=== PATIENT | male | born 1935 | race Caucasian/White ===

== ENCOUNTER 2019-02-01 13:36 | Inpatient (IN) | payer MEDICARE, MEDICAID ==
[~2019-02-01] VITALS: Ht 172.7 cm; Wt 63.5 kg
[~2019-02-01 13:36] MED LIST: ACET325T55 PO; ASCO-105 PO; CALC-1051 PO; DIGO125T97 PO; DOCU100C40 PO; LORA10TA7 PO; METO25TA6 PO; MULT1TAB74 PO; OMEG-166 PO; ONDA4TAB6 PO; OXYB5TAB29 PO; PANT-47 PO; PHEN100C12 PO; ROSU40TA PO; WARF3TAB56 PO
[2019-02-01 14:39] LABS: CLARITY,URINE CLOUDY (Clear); COLOR,URINE AMBER (Yellow); GLUCOSE, URINE NEGATIVE (Neg); KETONES,URINE 40 mg/dl (Neg); LEUKOCYTE ESTERASE ,URINE NEGATIVE (Neg); NITRITES, URINE NEGATIVE (Neg); OCCULT BLOOD,URINE TRACE-INTACT (Neg); PH,URINE 5.5 (4.8-8.0); PROTEIN,URINE 30 mg/dl (Neg)
[2019-02-01 14:40] LABS: UA COLLECTION TYPE CLN CATCH MIDSTREAM
[2019-02-01 14:46] LABS: MUCUS STRANDS FEW /LPF (Neg); SQUAMOUS EPITHELIAL CELL,UR NONE SEEN /LPF (FEW)
[2019-02-01 14:47] LABS: RBC,URINE 0-2 /HPF (0-2); WBC,URINE 0-4 /HPF (0-4)
[2019-02-01 14:48] LABS: AMORPHOUS URATES 3+
[2019-02-01 14:49] LABS: BACTERIA,URINE FEW /HPF (Neg)
[2019-02-01 15:08] LABS: URINE AMPHETAMINE SCREEN NEGATIVE (Neg); URINE BARBITUATE SCREEN NEGATIVE (Neg); URINE BENZODIAZEPINES SCREEN NEGATIVE (Neg); URINE CANNABINOID SCREEN NEGATIVE (Neg); URINE COCAINE SCREEN NEGATIVE (Neg); URINE METHADONE SCREEN NEGATIVE (Neg); URINE OPIATE SCREEN NEGATIVE (Neg); URINE PHENCYCLIDINE SCREEN NEGATIVE (Neg)
[2019-02-01 15:23] LABS: HEMATOCRIT 46.4 % (42.0-52.0); LYMPHOCYTES # (AUTO) 0.7 X10'3 (1.1-4.8); MONOCYTES # (AUTO) 1.2 X10'3 (0-0.9); NEUTROPHILS # (AUTO) 8.5 X10'3 (1.8-7.7); WHITE BLOOD COUNT 10.4 X10'3 (4.5-11.0)
[2019-02-01 15:24] LABS: BASOPHILS % (AUTO) 0.3 % (0-1); EOSINOPHILS % (AUTO) 0.2 % (0-6); HEMOGLOBIN 15.8 g/dl (14.0-17.9); LYMPHOCYTES % (AUTO) 6.3 % (21-51); MEAN CORPUSCULAR HEMOGLOBIN 33.8 PG (27.0-31.0); MEAN CORPUSCULAR HGB CONC 33.9 g/dL (33.0-36.5); MEAN CORPUSCULAR VOLUME 99.4 FL (78-98); MEAN PLATELET VOLUME 8.9 FL (7.4-10.4); MONOCYTES % (AUTO) 11.6 % (2-12); NEUTROPHILS % (AUTO) 81.6 % (42-75); PLATELET COUNT 179 X10'3 (140-440); RED BLOOD COUNT 4.67 X10'6 (4.70-6.10); RED CELL DISTRIBUTION WIDTH 13.4 % (11.5-14.5)
[2019-02-01 15:39] LABS: ALANINE AMINOTRANSFERASE 17 U/L (12-78); ALBUMIN 2.8 G/DL (3.4-5.0); ALBUMIN/GLOBULIN RATIO 0.6 (1.1-1.5); ALKALINE PHOSPHATASE 83 IU/L (46-116); ANION GAP 10 (8-16); ASPARTATE AMINO TRANSFERASE 22 U/L (10-37); BILIRUBIN,TOTAL 0.6 MG/DL (0.1-1.0); BLOOD UREA NITROGEN 29 MG/DL (7-18); BUN/CREATININE RATIO 26.4 (5.4-32.0); CALCIUM 8.7 MG/DL (8.5-10.1); CHLORIDE 107 MMOL/L (99-107); GLUCOSE 143 MG/DL (70-104); POTASSIUM 4.4 MMOL/L (3.5-5.1); SODIUM 144 MMOL/L (135-145); TOTAL CARBON DIOXIDE 27.1 MMOL/L (24-32); TOTAL PROTEIN 7.6 G/DL (6.4-8.2); eGFR 63 ML/MIN
[2019-02-01 15:44] LABS: PARTIAL THROMBOPLASTIN TIME 28 SECONDS (22-32)
[2019-02-01 15:48] LABS: MAGNESIUM 2.1 MG/DL (1.5-2.4); PHOSPHORUS 2.6 MG/DL (2.3-4.5)
[2019-02-01 15:59] LABS: ETHANOL < 0.010 GM/DL (0.0-0.010)
[2019-02-01] MEDS ORDERED: APIX5TAB3 PO (16:29)
[2019-02-01 17:01] LABS: ABG BASE EXCESS 1.1 mmol/L (-2.0-3.0); ABG HCO3 25.1 mmol/L (22.0-26.0); ABG OXYGEN SATURATION 95.6 % (95-98); ABG PH (T) 7.438 (7.350-7.450); ABG PO2 (T) 79.8 mmHg (83-108); ALLEN'S TEST Positive; FCOHb 0.7 % (0.5-1.5); FMetHb 0.1 % (0.3-1.12); FO2Hb 94.8 % (94-100); TOTAL HEMOGLOBIN 14.8 G/dl (14.0-17.9)
[2019-02-01] MEDS ORDERED: CALC250T2 PO (17:14)
[2019-02-01] MEDS ORDERED: OXYB5TAB16 PO (17:17)
[2019-02-01] MEDS ORDERED: potassium CL 10mEq/100ml bag 100 ML IV PRN ×2 (17:25)
[2019-02-01] MEDS ORDERED: magnesium 4gm in 100ml NS 100 ML IV PRN (17:25)
[2019-02-01] MEDS ORDERED: magnesium 2GM in 50ml NS 50 ML IV PRN (17:25)
[2019-02-01] MEDS ORDERED: potassium Cl 20 mEq SR tablet PO PRN ×2 (17:25)
[2019-02-01] MEDS ORDERED: magnesium Cl slow-release 64mg tablet PO PRN (17:25)
[2019-02-01] MEDS ORDERED: ondansetron/PF 4mg/2ml inj IV PRN (17:25)
[2019-02-01] MEDS: normal saline 1000ml 1,000 ML IV SCH (17:36)
--- NOTE | 2019-02-01 18:40 | NUR ---
I have received report from Ralph MCKINNON in the ER and had the opportunity to ask questions and awaiting arrival of patient to the PCU unit.
--- NOTE | 2019-02-01 18:55 | NUR ---
Patient arrived to the PCU unit at this time. He was transferred from the [facility] to the bed with a slide board. He is on isolation precautions for MDRO. He is confused and has an altered level of consciousness. He is not very verbal but when he does talk is speech is somewhat unclear. He was able to tell me his name but could not answer any other questions asked of him. He does not appear to be in any pain or distress. He is on room air. Bender cath in place to gravity drain. Vitals are stable. Skin check performed with second RN Gerri and there was a small open area noted on his left buttock and an optifoam was placed over this. All safety precautions are in place. Will continue to monitor. Spoke with lab about the outstanding Lactic acid and Troponin draws and there were a few transmission inspector that had tried to obtain his blood in the ER with no success and they are going to send up another transmission inspector to the floor now that he is here to try again.
[2019-02-01 19:00] VITALS: BP 129/67
[2019-02-01] MEDS: moxifloxacin 0.5% ophthalmic drops 3ml EACHEYE SCH (20:43)
[2019-02-01 22:00] VITALS: BP 110/46
--- NOTE | 2019-02-01 22:28 | NUR ---
PAGER ID: [phone] MESSAGE: Patient Ash Diamond Rm [phone] There have been several continuous improvement coach who have attempted to get labs with no success. Would it be ok to reschedule labs for tomorrow once the PICC nurse can place a central line? Blanca MCKINNON ext. [phone]
--- NOTE | 2019-02-01 22:39 | NUR ---
Spoke with Dr. Palm regarding not being able to obtain patient's labs with several attempts from different phlebotomists and nurses. Spoke about his condition clinically and that he has been afebrile, vitals stable, and being on tele monitoring and considering this he said it would be ok to wait until tomorrow to get the labs once a central line has been placed. Spoke with the lab about whether to retime the labs or leave them "in process" until they are obtained and they instructed to cancel the ones that were ordered for today because they would time out anyways and then to tell the AM nurse to reorder them once a line has been placed by the PICC nurse.
[2019-02-02] VITALS (19 sets, daily range): BP systolic 82–121; BP diastolic 30–71
--- NOTE | 2019-02-02 02:48 | NUR ---
pt has medical alert band on that says no blood, synagogue, and on coumadin
--- NOTE | 2019-02-02 02:51 | NUR ---
PAGER ID: [phone] MESSAGE: Patient Ash Diamond Rm [id number] Patient's blood pressure is low at 90/39. He came in with ALOC and is currently only responsive to painful stimuli. Other vitals are stable. Please advise. Blanca MCKINNON ext.
[2019-02-02] MEDS ORDERED: CefTRIAXone 2gm/D5W 50ml 50 ML IV ONE (03:05)
[2019-02-02] MEDS ORDERED: normal saline 1000ml 1,000 ML IV ONE ×3 (03:05→05:10)
--- NOTE | 2019-02-02 03:07 | NUR ---
bp now 94/29, rapid response called. unable to get better IV access, and field start is not holding up well. unable to get labs including blood cultures. ROCKET ENGINE COMPONENT MECHANIC here to help try for IV access. primary RN has already notified MD and obtained orders for IV bolus, but unable to give boluses due to IV access being so precarious.
[2019-02-02 03:21] LABS: ABG HCO3 23.6 mmol/L (22.0-26.0); ABG OXYGEN SATURATION 96.2 % (95-98); ABG PCO2 (T) 35.2 mmHg (35.0-45.0); ABG PH (T) 7.445 (7.350-7.450); ABG PO2 (T) 79.8 mmHg (83-108); FCOHb 0.3 % (0.5-1.5); FMetHb 0.2 % (0.3-1.12); FO2Hb 95.7 % (94-100); PATIENT TEMPERATURE 37.1; TOTAL HEMOGLOBIN 12.8 G/dl (14.0-17.9)
[2019-02-02] MEDS ORDERED: albumin (human) 25% 100 ML IV solution IV ONE ×2 (03:35→05:40)
[2019-02-02] MEDS ORDERED: heparin 25,000 UNIT/250ml bag 250 ML IV SCH ×2 (04:01→04:02)
[2019-02-02] MEDS ORDERED: heparin 10,000 units/1 ML INJ IV ONE ×2 (04:05)
[2019-02-02] MEDS ORDERED: heparin 10,000 units/1 ML INJ IV PRN ×2 (04:05)
[2019-02-02] MEDS ORDERED: aspirin 81mg tab.chew PO ONE (04:05)
--- NOTE | 2019-02-02 04:44 | NUR ---
PAGER ID: [phone] MESSAGE: Patient Ash Diamond Rm 3026 Were unable to give the chewable aspirin because patient not alert enough to take anything PO. Heparin drip was started. Blanca MCKINNON ext. [phone]
[2019-02-02] MEDS ORDERED: aspirin 300mg supp.rect RC ONE (04:50)
--- NOTE | 2019-02-02 04:50 | NUR ---
Rapid response was called on patient around 0310 for low blood pressures, with the best reading being 90/39 and unable to get any more IV access to get in the fluid boluses that MD had ordered. Rapid response team came. ABG was drawn. ED nurse came and attempted to get another line in without success and unable to get labs still even by phlebotomy. Were able to get two liters fluid bolus in with his field start IV. Also one bottle of Albumin was given. One dose of Rocephin given. Imaxio then informed us that patient is showing some ST depression. EKG was obtained and also showed ST depression and ischemia. MD was informed and ordered to start on Heparin drip.
--- NOTE | 2019-02-02 04:57 | NUR ---
promotional table spacer PAGER ID: [phone] MESSAGE: Patient Ash Diamond Rm 3022 Patient's blood pressure back down to 80's/30's. Blanca MCKINNON ext. [phone]
--- NOTE | 2019-02-02 05:08 | NUR ---
Notified MD that patients BP is dropping further now to 80's/30s. MD ordered another liter fluid bolus and will call to transfer to the ICU.
--- NOTE | 2019-02-02 05:10 | NUR ---
PAGER ID: [phone] MESSAGE: Patient Ash Diamond Rm [phone] Patient has just gone from sinus rhythm into A-fib with HR in the 120's-130's. Blanca MCKINNON ext. [phone]
--- NOTE | 2019-02-02 05:50 | NUR ---
Report called to Basilia MCKINNON in the ICU for patient going into room 2023.
--- NOTE | 2019-02-02 05:52 | NUR ---
Patient transferred to the ICU at this time.
--- NOTE | 2019-02-02 06:00 | NUR ---
Received patient report from Blanca MCKINNON and assumed patient care. Patient arrived via PCU bed, trasnferred to ICU bed with max assist. Patient drowsy but easily arousable to name. BP 88/49 via automatic cuff, HR in 120s in atrial fibrillation. Oxygen saturation in mid 80s on room air, nasal cannula applied on 3.5L and oxygen went up to 94%. Orders reviewed.
[2019-02-02] MEDS: amiodarone/D5 360MG/200ML BAG 200 ML IV SCH ×4 (06:05→23:42)
--- NOTE | 2019-02-02 06:20 | NUR ---
Problems reprioritized. Patient report given, questions answered & plan of care reviewed with Shala MCKINNON.
[2019-02-02 07:09] LABS: BASOPHILS % (AUTO) 0.2 % (0-1); EOSINOPHILS % (AUTO) 0.3 % (0-6); HEMATOCRIT 34.7 % (42.0-52.0); HEMOGLOBIN 11.8 g/dl (14.0-17.9); LYMPHOCYTES # (AUTO) 0.8 X10'3 (1.1-4.8); LYMPHOCYTES % (AUTO) 10.5 % (21-51); MEAN CORPUSCULAR HEMOGLOBIN 34.3 PG (27.0-31.0); MEAN CORPUSCULAR HGB CONC 33.9 g/dL (33.0-36.5); MEAN CORPUSCULAR VOLUME 101.1 FL (78-98); MEAN PLATELET VOLUME 9.2 FL (7.4-10.4); MONOCYTES # (AUTO) 0.9 X10'3 (0-0.9); NEUTROPHILS # (AUTO) 6.2 X10'3 (1.8-7.7); PLATELET COUNT 129 X10'3 (140-440); RED BLOOD COUNT 3.43 X10'6 (4.70-6.10); RED CELL DISTRIBUTION WIDTH 13.9 % (11.5-14.5); WHITE BLOOD COUNT 7.9 X10'3 (4.5-11.0)
[2019-02-02] MEDS ORDERED: amiodarone 150mg/dext, iso-os 100 ML IV ONE (07:10)
[2019-02-02 07:31] LABS: ALBUMIN 3.5 G/DL (3.4-5.0); ANION GAP 15 (8-16); BLOOD UREA NITROGEN 22 MG/DL (7-18); BUN/CREATININE RATIO 24.2 (5.4-32.0); CALCIUM 7.1 MG/DL (8.5-10.1); CHLORIDE 115 MMOL/L (99-107); CREATININE 0.91 MG/DL (0.60-1.10); GLUCOSE 77 MG/DL (70-104); MAGNESIUM 1.8 MG/DL (1.5-2.4); PHENYTOIN (DILANTIN) 2.6 UG/ML (10.0-20.0); POTASSIUM 3.4 MMOL/L (3.5-5.1); SODIUM 149 MMOL/L (135-145); TOTAL CARBON DIOXIDE 19.1 MMOL/L (24-32); eGFR 79 ML/MIN
[2019-02-02 07:33] LABS: TROPONIN I 1.23 NG/ML (0.0-0.05)
[2019-02-02] MEDS: K and/or MAG REPLACEMENT MC SCH (07:56)
[2019-02-02] MEDS: OMEGA-3/DHA/EPA/FISH OIL 1 EACH CAPSULE.DR PO SCH (08:00)
[2019-02-02] MEDS ORDERED: metoprolol tartrate 25mg tablet PO SCH (08:00)
[2019-02-02] MEDS ORDERED: multivitamins, therapeutics tablet PO SCH (08:00)
[2019-02-02] MEDS ORDERED: docusate sod 100mg capsule PO SCH (08:00)
[2019-02-02] MEDS: moxifloxacin 0.5% ophthalmic drops 3ml EACHEYE SCH ×2 (08:00→20:00)
[2019-02-02] MEDS ORDERED: phenytoin sod ER 100mg capsule PO SCH (08:00)
[2019-02-02] MEDS ORDERED: apixaban 5mg tablet PO SCH (08:00)
[2019-02-02] MEDS ORDERED: digoxin 250mcg/ml 2ml ampule IV ONE ×2 (08:55→09:25)
[2019-02-02] MEDS ORDERED: digoxin 250mcg/ml 2ml ampule IV SCH (08:55)
[2019-02-02] MEDS ORDERED: potassium Cl 20 mEq SR tablet NG PRN ×2 (10:55)
--- NOTE | 2019-02-02 12:55 | NUR ---
Patient's admitting diagnosis states "sepsis" and per current MD note patient presents with hypovolemic shock, has already received 5 liters of fluid. Has history of dementia, was experiencing increasing confusion and had not been eating or drinking well for two days prior to admission. No documented sepsis diagnosis. Pt is NPO now. 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 Will continue to follow and monitor diet advancement, sodium, and PO intake. Addendum: 02/02/19 at [address] Amended: Links added.
--- NOTE | 2019-02-02 13:01 | NUR ---
Patient's admitting diagnosis states "sepsis" and per current MD note patient presents with hypovolemic shock, has already received 5 liters of fluid. Has history of dementia, was experiencing increasing confusion and had not been eating or drinking well for two days prior to admission. No documented sepsis diagnosis. Pt is NPO now. 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 Will continue to follow and monitor diet advancement, sodium, and PO intake. Recommend: 1. Advance diet as medically indicated to regular 2. When no longer NPO, recommend routine bowel care 3. Encourage hydration when diet is advanced 4. Monitor PO intake and need for ONS if with suboptimal food intake Addendum: 02/02/19 at [address] Amended: Links added.
[2019-02-02] MEDS: normal saline 1000ml 1,000 ML IV SCH (13:40)
[2019-02-02] MEDS: phenytoin 100mg/4ml ***ORAL SUSPENSION NG SCH ×2 (14:30→20:35)
--- NOTE | 2019-02-02 18:35 | NUR ---
Patient in room ICU 2041. I have received report from Shala MCKINNON, and had the opportunity to ask questions and assume patient care.
[2019-02-02] MEDS ORDERED: docusate sodium 100mg/10ml UD cup NG SCH (20:00)
[2019-02-02] MEDS: metoprolol tartrate 25mg tablet NG SCH (20:00)
--- NOTE | 2019-02-02 20:00 | NUR ---
PT is resting with no s/s of distress noted at this time. VSS. PT is receiving 2L O2 to simple face mask d/t PT being a heavy mouth breather. Bender in place, draining to gravity. Bed is locked and low. Call light is within reach. Will continue to monitor.
[2019-02-02] MEDS ORDERED: digoxin 125mcg (0.125mg) tablet PO SCH (21:00)
[2019-02-02] MEDS ORDERED: CALCIUM CITRATE 1000 MG PO SCH (21:00)
[2019-02-02] MEDS ORDERED: oxybutynin 5mg per 5ml oral solution NG SCH (21:00)
[2019-02-02] MEDS: ROSUVASTATIN CALCIUM 40 MG PO SCH (21:00)
[2019-02-02] MEDS ORDERED: CefTRIAXone/D5W-Rocephin 1gm 50 ML IV SCH (21:00)
--- NOTE | 2019-02-02 23:30 | NUR ---
PT continues to rest with no s/s of distress noted at this time. VSS. Bed is locked and low. Call light is within reach. Will continue to monitor.
[2019-02-03] VITALS (15 sets, daily range): BP systolic 99–134; BP diastolic 42–89
[2019-02-03 02:50] LABS: BASOPHILS % (AUTO) 0.3 % (0-1); EOSINOPHILS % (AUTO) 0.1 % (0-6); HEMATOCRIT 30.4 % (42.0-52.0); HEMOGLOBIN 10.6 g/dl (14.0-17.9); LYMPHOCYTES # (AUTO) 0.8 X10'3 (1.1-4.8); LYMPHOCYTES % (AUTO) 7.7 % (21-51); MEAN CORPUSCULAR HEMOGLOBIN 34.4 PG (27.0-31.0); MEAN CORPUSCULAR HGB CONC 34.8 g/dL (33.0-36.5); MEAN CORPUSCULAR VOLUME 98.9 FL (78-98); MEAN PLATELET VOLUME 8.3 FL (7.4-10.4); MONOCYTES % (AUTO) 9.5 % (2-12); NEUTROPHILS # (AUTO) 8.9 X10'3 (1.8-7.7); NEUTROPHILS % (AUTO) 82.4 % (42-75); PLATELET COUNT 134 X10'3 (140-440); RED BLOOD COUNT 3.07 X10'6 (4.70-6.10); RED CELL DISTRIBUTION WIDTH 13.2 % (11.5-14.5); WHITE BLOOD COUNT 10.7 X10'3 (4.5-11.0)
[2019-02-03 03:18] LABS: ALBUMIN 2.4 G/DL (3.4-5.0); ANION GAP 7 (8-16); BLOOD UREA NITROGEN 20 MG/DL (7-18); CHLORIDE 115 MMOL/L (99-107); CREATININE 0.91 MG/DL (0.60-1.10); GLUCOSE 121 MG/DL (70-104); MAGNESIUM 1.8 MG/DL (1.5-2.4); POTASSIUM 3.3 MMOL/L (3.5-5.1); SODIUM 147 MMOL/L (135-145); TOTAL CARBON DIOXIDE 24.9 MMOL/L (24-32); eGFR 79 ML/MIN
[2019-02-03 03:20] LABS: TROPONIN I 7.78 NG/ML (0.0-0.05)
[2019-02-03] MEDS: potassium Cl 20mEq/100mL bag 100 ML IV PRN ×2 (03:38→04:55)
--- NOTE | 2019-02-03 04:40 | NUR ---
Received critical troponin of 7.78. ALEXIS Martines notified, a call was placed to . No new orders at this time. Will continue to monitor.
--- NOTE | 2019-02-03 07:00 | NUR ---
Problems reprioritized. Patient report given, questions answered & plan of care reviewed with Pat RN.
[2019-02-03] MEDS: amiodarone/D5 360MG/200ML BAG 200 ML IV SCH (07:33)
[2019-02-03] MEDS ORDERED: MULTIVIT-MIN/FERROUS GLUCONATE 9 MG/15 ML LIQUID NG SCH (08:00)
[2019-02-03] MEDS ORDERED: digoxin 250mcg/ml 2ml ampule IV SCH (08:00)
[2019-02-03] MEDS ORDERED: aspirin 81mg tab.chew NG SCH (08:30)
[2019-02-03] MEDS: K and/or MAG REPLACEMENT MC SCH (08:35)
[2019-02-03] MEDS: phenytoin 100mg/4ml ***ORAL SUSPENSION NG SCH (09:18)
[2019-02-03] MEDS: moxifloxacin 0.5% ophthalmic drops 3ml EACHEYE SCH ×2 (09:19→21:13)
[2019-02-03] MEDS: OMEGA-3/DHA/EPA/FISH OIL 1 EACH CAPSULE.DR PO SCH (09:20)
[2019-02-03] MEDS: normal saline 1000ml 1,000 ML IV SCH (09:22)
[2019-02-03] MEDS: amiodarone 200mg tablet PO SCH ×2 (09:45→19:37)
[2019-02-03] MEDS: metoprolol tartrate 25mg tablet NG SCH (09:46)
[2019-02-03] MEDS ORDERED: MULTIVIT-MIN/FERROUS GLUCONATE 9 MG/15 ML LIQUID PO SCH (12:24)
[2019-02-03] MEDS ORDERED: potassium Cl 20 mEq SR tablet PO PRN (12:25)
--- NOTE | 2019-02-03 13:37 | NUR ---
REPORT PHONED TO TANYA FARRELL. Addendum: 02/03/19 at 1338 by Lilly Rivera RN Amended: Links added.
[2019-02-03] MEDS: potassium Cl 20 mEq SR tablet PO PRN ×3 (13:46→23:51)
[2019-02-03] MEDS: phenytoin 100mg/4ml ***ORAL SUSPENSION PO SCH ×2 (13:49→21:13)
--- NOTE | 2019-02-03 14:00 | NUR ---
TRANSFERRED WITH ALL BELONGINGS VIA BED TO ROOM 302. BED LOCKED, CALL LIGHT IN REACH. Addendum: 02/03/19 at 1448 by Lilly Rivera RN Amended: Links added.
--- NOTE | 2019-02-03 18:19 | NUR ---
Problems reprioritized. Patient report given, questions answered & plan of care reviewed with PRATIBHA Landon.
[2019-02-03] MEDS: metoprolol tartrate 25mg tablet PO SCH (19:38)
[2019-02-03] MEDS: lactobacillus rhamnosus 10,000 MMU CELLS/CAPSULE PO SCH (19:38)
[2019-02-03] MEDS: docusate sodium 100mg/10ml UD cup PO SCH (19:38)
[2019-02-03] MEDS: ROSUVASTATIN CALCIUM 40 MG PO SCH (21:00)
[2019-02-03] MEDS: CefTRIAXone 2gm/D5W 50ml 50 ML IV SCH (21:14)
[2019-02-03] MEDS: oxybutynin 5mg per 5ml oral solution PO SCH (21:14)
[2019-02-04 03:00] VITALS: BP 148/91
[2019-02-04 04:53] LABS: BASOPHILS % (AUTO) 0.4 % (0-1); EOSINOPHILS % (AUTO) 0.1 % (0-6); HEMATOCRIT 34.6 % (42.0-52.0); HEMOGLOBIN 11.7 g/dl (14.0-17.9); LYMPHOCYTES # (AUTO) 0.5 X10'3 (1.1-4.8); LYMPHOCYTES % (AUTO) 4.5 % (21-51); MEAN CORPUSCULAR HEMOGLOBIN 33.9 PG (27.0-31.0); MEAN CORPUSCULAR VOLUME 99.7 FL (78-98); MEAN PLATELET VOLUME 9.7 FL (7.4-10.4); MONOCYTES # (AUTO) 1.1 X10'3 (0-0.9); MONOCYTES % (AUTO) 10.9 % (2-12); NEUTROPHILS # (AUTO) 8.8 X10'3 (1.8-7.7); NEUTROPHILS % (AUTO) 84.1 % (42-75); PLATELET COUNT 158 X10'3 (140-440); RED BLOOD COUNT 3.47 X10'6 (4.70-6.10); RED CELL DISTRIBUTION WIDTH 13.7 % (11.5-14.5); WHITE BLOOD COUNT 10.5 X10'3 (4.5-11.0)
[2019-02-04 05:06] LABS: ANION GAP 8 (8-16); BLOOD UREA NITROGEN 20 MG/DL (7-18); BUN/CREATININE RATIO 23.5 (5.4-32.0); CALCIUM 7.8 MG/DL (8.5-10.1); CHLORIDE 114 MMOL/L (99-107); CREATININE 0.85 MG/DL (0.60-1.10); GLUCOSE 117 MG/DL (70-104); POTASSIUM 4.4 MMOL/L (3.5-5.1); SODIUM 144 MMOL/L (135-145); TOTAL CARBON DIOXIDE 21.9 MMOL/L (24-32); eGFR 85 ML/MIN
[2019-02-04 05:07] LABS: ALBUMIN 2.4 G/DL (3.4-5.0)
--- NOTE | 2019-02-04 06:00 | NUR ---
Patient in room PCU 3023. I have received report from PRATIBHA Landon and had the opportunity to ask questions and assume patient care. Patient is currently resting in bed, bed locked and low, call light in reach. Patient is unable to communicate his needs, will continue to monitor.
[2019-02-04] MEDS: docusate sodium 100mg/10ml UD cup PO SCH ×3 (08:00→20:12)
[2019-02-04] MEDS: K and/or MAG REPLACEMENT MC SCH (08:00)
[2019-02-04] MEDS: lactobacillus rhamnosus 10,000 MMU CELLS/CAPSULE PO SCH ×2 (08:33→20:13)
[2019-02-04] MEDS: metoprolol tartrate 25mg tablet PO SCH ×2 (08:36→20:17)
[2019-02-04] MEDS: digoxin 125mcg (0.125mg) tablet PO SCH (08:36)
[2019-02-04] MEDS: amiodarone 200mg tablet PO SCH ×2 (08:37→20:13)
[2019-02-04] MEDS: OMEGA-3/DHA/EPA/FISH OIL 1 EACH CAPSULE.DR PO SCH (08:37)
[2019-02-04] MEDS: moxifloxacin 0.5% ophthalmic drops 3ml EACHEYE SCH ×2 (08:38→20:32)
[2019-02-04] MEDS: phenytoin 100mg/4ml ***ORAL SUSPENSION PO SCH ×3 (08:38→20:18)
[2019-02-04] MEDS: aspirin 81mg tab.chew PO SCH (08:38)
--- NOTE | 2019-02-04 09:19 | NUR ---
PAGER ID: [phone] MESSAGE: PRATIBHA Aggarwal, ext [phone], [id number], Summa, suspect patient aspirated on liquid multi-vit, liquid Colace held, will order bedside swallow.
[2019-02-04 11:00] VITALS: BP 114/81
--- NOTE | 2019-02-04 15:17 | NUR ---
PAGER ID: [phone] MESSAGE: PRATIBHA Aggarwal, ext [phone], [phone], Summa, Patient is refusing to eat his meals after a bite or two, I will place order for dietary consult and he may need ensure or something similar.
[2019-02-04 15:38] VITALS: BP 128/71
--- NOTE | 2019-02-04 15:49 | NUR ---
Patient's son called, Yonatan Diamond, . Patient was told that we have no documentation that we are able to share information with him. he would like to speak with the social sciences research scientist, I told him we would contact her and someone would call him mercedes with information. packing floor worker paged.
--- NOTE | 2019-02-04 16:09 | NUR ---
reassessment: patient no longer NPO, now mechanical soft foods with diet order comment "poor dentition," a Bedside swallow evaluation by ROENTGENOLOGIST done today, ROENTGENOLOGIST reports patient is tolerating mechanical soft diet with thin liquids however needs feeder for safety d/t tendency to gulp liquids. Poor PO for two days. Noted that patient is still confused. May need ONS for suboptimal PO intake, will notify MD. Transferred to telemetry from critical care, per MD note shock is resolved. Will continue to follow. Recommend: 1. Continue mechanical soft diet with thin liquid per ROENTGENOLOGIST recs 2. Routine bowel care 3. Encourage hydration when diet is advanced 4. ensure enlive with lunch and dinner-notify MD Addendum: 02/04/19 at [address] Amended: Links added.
--- NOTE | 2019-02-04 17:17 | NUR ---
PAGER ID: [phone] MESSAGE: PRATIBHA Aggarwal, ext [phone], 2017H, Summa, patient has home med that we do not carry in stock and we are unable to obtain it as his is in ICU. please DC his rosuvastatin calcium so we do not have a med error.
--- NOTE | 2019-02-04 17:57 | NUR ---
Son's girlfriend called and told charge nurse that "someone" called them this morning and told them that patient was dying. Primary nurse picked up the phone and it was the son. previous phone number received was incorrect, new number is [phone], son, Yonatan, was told that while patient is very sick he has been stable throughout the shift. He said thank you, he didn't have any more questions and he hung up.
[2019-02-04 18:00] VITALS: BP 102/68
--- NOTE | 2019-02-04 18:00 | NUR ---
Patient in room PCU 3023. I have received report from Alessia MCKINNON and had the opportunity to ask questions and assume patient care.
--- NOTE | 2019-02-04 18:27 | NUR ---
Problems reprioritized. Patient report given, questions answered & plan of care reviewed with PRATIBHA Kramer, Patient is currently resting in bed, bed locked and low, call light in reach, refused to eat his dinner, arousable but lethargic, VSS at [facility] change. .
[2019-02-04] MEDS: CefTRIAXone 2gm/D5W 50ml 50 ML IV SCH (20:18)
[2019-02-04] MEDS: oxybutynin 5mg per 5ml oral solution PO SCH (20:19)
[2019-02-04] MEDS: ROSUVASTATIN CALCIUM 40 MG PO SCH (20:32)
[2019-02-04 23:00] VITALS: BP 124/62
[2019-02-05 03:00] VITALS: BP 116/60
[2019-02-05 05:50] LABS: BASOPHILS % (AUTO) 0.5 % (0-1); EOSINOPHILS % (AUTO) 0.5 % (0-6); HEMATOCRIT 35.1 % (42.0-52.0); HEMOGLOBIN 12.1 g/dl (14.0-17.9); LYMPHOCYTES # (AUTO) 0.9 X10'3 (1.1-4.8); LYMPHOCYTES % (AUTO) 9.6 % (21-51); MEAN CORPUSCULAR HGB CONC 34.6 g/dL (33.0-36.5); MEAN CORPUSCULAR VOLUME 98.4 FL (78-98); MONOCYTES # (AUTO) 1.2 X10'3 (0-0.9); MONOCYTES % (AUTO) 12.2 % (2-12); NEUTROPHILS # (AUTO) 7.5 X10'3 (1.8-7.7); NEUTROPHILS % (AUTO) 77.2 % (42-75); PLATELET COUNT 170 X10'3 (140-440); RED BLOOD COUNT 3.56 X10'6 (4.70-6.10); RED CELL DISTRIBUTION WIDTH 13.8 % (11.5-14.5); WHITE BLOOD COUNT 9.7 X10'3 (4.5-11.0)
[2019-02-05 05:55] LABS: ALBUMIN 2.3 G/DL (3.4-5.0); ANION GAP 7 (8-16); BLOOD UREA NITROGEN 20 MG/DL (7-18); BUN/CREATININE RATIO 21.1 (5.4-32.0); CALCIUM 7.7 MG/DL (8.5-10.1); CHLORIDE 112 MMOL/L (99-107); CREATININE 0.95 MG/DL (0.60-1.10); GLUCOSE 110 MG/DL (70-104); MAGNESIUM 1.9 MG/DL (1.5-2.4); POTASSIUM 3.8 MMOL/L (3.5-5.1); SODIUM 144 MMOL/L (135-145); TOTAL CARBON DIOXIDE 24.9 MMOL/L (24-32); eGFR 75 ML/MIN
[2019-02-05 06:00] VITALS: BP 107/46
--- NOTE | 2019-02-05 06:34 | NUR ---
Problems reprioritized. Patient report given, questions answered & plan of care reviewed with CLARENCE collado.
--- NOTE | 2019-02-05 06:38 | NUR ---
Patient in room PCU 3023. I have received report from PRATIBHA Kramer and had the opportunity to ask questions and assume patient care. Patient currently sleeping in bed, bed locked and low, call light in reach. No acute distress, will continue to monitor.
[2019-02-05] MEDS: K and/or MAG REPLACEMENT MC SCH (08:00)
[2019-02-05] MEDS: docusate sodium 100mg/10ml UD cup PO SCH ×2 (08:58→20:22)
[2019-02-05] MEDS: amiodarone 200mg tablet PO SCH ×2 (09:02→20:22)
[2019-02-05] MEDS: metoprolol tartrate 25mg tablet PO SCH ×2 (09:02→20:22)
[2019-02-05] MEDS: lactobacillus rhamnosus 10,000 MMU CELLS/CAPSULE PO SCH ×2 (09:02→20:22)
[2019-02-05] MEDS: digoxin 125mcg (0.125mg) tablet PO SCH (09:02)
[2019-02-05] MEDS: aspirin 81mg tab.chew PO SCH (09:02)
[2019-02-05] MEDS: phenytoin 100mg/4ml ***ORAL SUSPENSION PO SCH ×3 (09:03→22:23)
[2019-02-05] MEDS: OMEGA-3/DHA/EPA/FISH OIL 1 EACH CAPSULE.DR PO SCH (09:03)
[2019-02-05] MEDS: moxifloxacin 0.5% ophthalmic drops 3ml EACHEYE SCH ×2 (09:04→20:23)
[2019-02-05] MEDS: MULTIVIT-MIN/FERROUS GLUCONATE 9 MG/15 ML LIQUID PO SCH (09:04)
[2019-02-05 11:00] VITALS: BP 125/67
--- NOTE | 2019-02-05 12:21 | NUR ---
Nutrition consult re: pt refusing to eat meals. Unable to send ONS at this time d/t still [facility] In the mean time, d/w dietary to send yogurt QD with breakfast, Ensure pudding BIDLD, and Magic Cup QD with dinner. Pt remains A/O x 1 and confused. LB 02/04. Will continue to follow. Recommend: 1. Continue mechanical soft diet with thin liquid per ARCHERY INSTRUCTOR recs 2. Routine bowel care 3. Encourage hydration and PO intake 4. ensure enlive with lunch and dinner-notify MD 5. Yogurt QD at breakfast; Ensure pudding BIDLD; Magic cup QD at dinner Addendum: 02/05/19 at [address] Amended: Links added.
--- NOTE | 2019-02-05 13:32 | NUR ---
Spoke with pharmacy regarding the issue with patient's Crestor and inability to obtain it. [facility] and see if they will fill the prescription early and send it over or if we can get authorization for [facility] to fill the prescription so that we can have it here.
[2019-02-05 15:48] VITALS: BP 115/63
[2019-02-05 18:00] VITALS: BP 119/69
[2019-02-05] MEDS: lactose-reduced food (Ensure Enlive) - 237ml bottle PO SCH (18:00)
--- NOTE | 2019-02-05 18:15 | NUR ---
Patient in room PCU 3023A. I have received report from PRATIBHA Aggarwal and had the opportunity to ask questions and assume patient care.Will continue to monitor
--- NOTE | 2019-02-05 18:36 | NUR ---
Problems reprioritized. Patient report given, questions answered & plan of care reviewed with PRATIBHA Quispe. Patient is currently resting in bed, bed locked and low call light in reach, stable at shift change.
[2019-02-05] MEDS: CefTRIAXone 2gm/D5W 50ml 50 ML IV SCH (21:00)
[2019-02-05 22:00] VITALS: BP 131/71
[2019-02-05] MEDS: ROSUVASTATIN CALCIUM 40 MG PO SCH (22:23)
[2019-02-05] MEDS: oxybutynin 5mg per 5ml oral solution PO SCH (22:24)
[2019-02-06 02:00] VITALS: BP 119/56
[2019-02-06 05:20] LABS: ALBUMIN 1.9 G/DL (3.4-5.0); ANION GAP 7 (8-16); BLOOD UREA NITROGEN 20 MG/DL (7-18); BUN/CREATININE RATIO 27.8 (5.4-32.0); CALCIUM 7.4 MG/DL (8.5-10.1); CHLORIDE 112 MMOL/L (99-107); CREATININE 0.72 MG/DL (0.60-1.10); GLUCOSE 104 MG/DL (70-104); MAGNESIUM 1.8 MG/DL (1.5-2.4); POTASSIUM 3.4 MMOL/L (3.5-5.1); SODIUM 144 MMOL/L (135-145); TOTAL CARBON DIOXIDE 25.5 MMOL/L (24-32); eGFR > 90 ML/MIN
[2019-02-06 06:00] VITALS: BP 127/61
--- NOTE | 2019-02-06 06:00 | NUR ---
Patient in room PCU 3023. I have received report from PRATIBHA Quispe and had the opportunity to ask questions and assume patient care. Patient currently resting in bed, bed locked adn low, call light in reach, no acute distress, will continue to monitor.
--- NOTE | 2019-02-06 06:10 | NUR ---
Problems reprioritized. Patient report given, questions answered & plan of care reviewed with PRATIBHA Aggarwal . Pt is stable at shift change
[2019-02-06 07:08] LABS: BASOPHILS % (AUTO) 0.5 % (0-1); EOSINOPHILS # (AUTO) 0.3 X10'3 (0-0.9); EOSINOPHILS % (AUTO) 3.7 % (0-6); HEMATOCRIT 31.9 % (42.0-52.0); HEMOGLOBIN 10.9 g/dl (14.0-17.9); LYMPHOCYTES % (AUTO) 13.5 % (21-51); MEAN CORPUSCULAR HEMOGLOBIN 33.4 PG (27.0-31.0); MEAN CORPUSCULAR VOLUME 98.1 FL (78-98); MONOCYTES # (AUTO) 1.3 X10'3 (0-0.9); MONOCYTES % (AUTO) 16.5 % (2-12); NEUTROPHILS % (AUTO) 65.8 % (42-75); PLATELET COUNT 157 X10'3 (140-440); RED BLOOD COUNT 3.25 X10'6 (4.70-6.10); RED CELL DISTRIBUTION WIDTH 13.6 % (11.5-14.5); WHITE BLOOD COUNT 7.6 X10'3 (4.5-11.0)
[2019-02-06 07:42] LABS: PLATELET ESTIMATE NORMAL; TOTAL CELLS COUNTED 100
[2019-02-06] MEDS: K and/or MAG REPLACEMENT MC SCH (08:00)
[2019-02-06] MEDS: MULTIVIT-MIN/FERROUS GLUCONATE 9 MG/15 ML LIQUID PO SCH (08:56)
[2019-02-06] MEDS: docusate sodium 100mg/10ml UD cup PO SCH ×2 (08:56→21:21)
[2019-02-06] MEDS: aspirin 81mg tab.chew PO SCH (08:56)
[2019-02-06] MEDS: amiodarone 200mg tablet PO SCH ×2 (08:56→21:21)
[2019-02-06] MEDS: lactobacillus rhamnosus 10,000 MMU CELLS/CAPSULE PO SCH ×2 (08:56→21:21)
[2019-02-06] MEDS: digoxin 125mcg (0.125mg) tablet PO SCH (08:57)
[2019-02-06] MEDS: lactose-reduced food (Ensure Enlive) - 237ml bottle PO SCH ×2 (08:58→13:00)
[2019-02-06] MEDS: moxifloxacin 0.5% ophthalmic drops 3ml EACHEYE SCH ×2 (08:58→21:22)
[2019-02-06] MEDS: OMEGA-3/DHA/EPA/FISH OIL 1 EACH CAPSULE.DR PO SCH (08:58)
[2019-02-06] MEDS: phenytoin 100mg/4ml ***ORAL SUSPENSION PO SCH ×3 (08:58→21:21)
[2019-02-06] MEDS: metoprolol tartrate 25mg tablet PO SCH ×2 (09:00→21:22)
[2019-02-06 11:00] VITALS: BP 106/56
[2019-02-06] MEDS: potassium Cl 20mEq/100mL bag 100 ML IV PRN ×2 (13:58→15:44)
[2019-02-06 15:00] VITALS: BP 115/53
[2019-02-06 18:00] VITALS: BP 117/52
--- NOTE | 2019-02-06 18:08 | NUR ---
Problems reprioritized. Patient report given, questions answered & plan of care reviewed with PRATIBHA Quispe. Patient currently resting in bed, bed locked and low, call light in reach, stable at shift change
--- NOTE | 2019-02-06 18:15 | NUR ---
Patient in room PCU 3023A. I have received report from Alessia and had the opportunity to ask questions and assume patient care.
[2019-02-06] MEDS: ROSUVASTATIN CALCIUM 40 MG PO SCH (21:00)
[2019-02-06] MEDS: CefTRIAXone 2gm/D5W 50ml 50 ML IV SCH (21:20)
[2019-02-06] MEDS: oxybutynin 5mg per 5ml oral solution PO SCH (21:29)
[2019-02-06 22:00] VITALS: BP 126/60
--- NOTE | 2019-02-06 23:33 | NUR ---
At 22:00 patient's axillary temperature was 99.2. I took temperature (orally) is 97.6. Pt is resting comfortably with no sign of distress Addendum: 02/06/19 at 2335 by Jose Enrique Davis RN Amended: Links added.
[2019-02-07 02:00] VITALS: BP 151/75
[2019-02-07 06:00] VITALS: BP 145/68
--- NOTE | 2019-02-07 06:20 | NUR ---
Problems reprioritized. Patient report given, questions answered & plan of care reviewed with PRATIBHA Shaikh. Pt is stable at shift change
[2019-02-07 07:18] LABS: MAGNESIUM 1.9 MG/DL (1.5-2.4)
[2019-02-07] MEDS: MULTIVIT-MIN/FERROUS GLUCONATE 9 MG/15 ML LIQUID PO SCH (07:38)
[2019-02-07] MEDS: amiodarone 200mg tablet PO SCH ×2 (07:38→21:10)
[2019-02-07] MEDS: lactobacillus rhamnosus 10,000 MMU CELLS/CAPSULE PO SCH ×2 (07:38→21:09)
[2019-02-07] MEDS: phenytoin 100mg/4ml ***ORAL SUSPENSION PO SCH ×3 (07:38→23:17)
[2019-02-07] MEDS: moxifloxacin 0.5% ophthalmic drops 3ml EACHEYE SCH ×2 (07:38→21:16)
[2019-02-07] MEDS: docusate sodium 100mg/10ml UD cup PO SCH (07:38)
[2019-02-07] MEDS: lactose-reduced food (Ensure Enlive) - 237ml bottle PO SCH ×2 (07:38→13:04)
[2019-02-07] MEDS: digoxin 125mcg (0.125mg) tablet PO SCH (07:39)
[2019-02-07] MEDS: OMEGA-3/DHA/EPA/FISH OIL 1 EACH CAPSULE.DR PO SCH (07:39)
[2019-02-07] MEDS: metoprolol tartrate 25mg tablet PO SCH ×2 (07:40→21:10)
[2019-02-07] MEDS: aspirin 81mg tab.chew PO SCH (07:40)
--- NOTE | 2019-02-07 07:56 | NUR ---
Patient in room PCU 3023. I have received report from Jose Enrique MCKINNON and had the opportunity to ask questions and assume patient care. Patient confused and garbled speech, bed alarm on.
[2019-02-07] MEDS: K and/or MAG REPLACEMENT MC SCH (08:00)
[2019-02-07 08:35] LABS: ANION GAP 9 (8-16); BLOOD UREA NITROGEN 18 MG/DL (7-18); BUN/CREATININE RATIO 21.4 (5.4-32.0); CALCIUM 7.8 MG/DL (8.5-10.1); CHLORIDE 111 MMOL/L (99-107); CREATININE 0.84 MG/DL (0.60-1.10); GLUCOSE 101 MG/DL (70-104); SODIUM 146 MMOL/L (135-145); TOTAL CARBON DIOXIDE 25.6 MMOL/L (24-32); eGFR 87 ML/MIN
[2019-02-07 08:57] LABS: BASOPHILS % (AUTO) 0.6 % (0-1); EOSINOPHILS # (AUTO) 0.4 X10'3 (0-0.9); EOSINOPHILS % (AUTO) 5.7 % (0-6); HEMATOCRIT 39.2 % (42.0-52.0); HEMOGLOBIN 13.4 g/dl (14.0-17.9); LYMPHOCYTES # (AUTO) 1.4 X10'3 (1.1-4.8); LYMPHOCYTES % (AUTO) 17.7 % (21-51); MEAN CORPUSCULAR HEMOGLOBIN 33.9 PG (27.0-31.0); MEAN CORPUSCULAR HGB CONC 34.3 g/dL (33.0-36.5); MEAN CORPUSCULAR VOLUME 98.7 FL (78-98); MEAN PLATELET VOLUME 9.2 FL (7.4-10.4); MONOCYTES # (AUTO) 1.1 X10'3 (0-0.9); MONOCYTES % (AUTO) 14.8 % (2-12); NEUTROPHILS # (AUTO) 4.7 X10'3 (1.8-7.7); NEUTROPHILS % (AUTO) 61.2 % (42-75); PLATELET COUNT 216 X10'3 (140-440); RED BLOOD COUNT 3.97 X10'6 (4.70-6.10); RED CELL DISTRIBUTION WIDTH 13.8 % (11.5-14.5); WHITE BLOOD COUNT 7.7 X10'3 (4.5-11.0)
[2019-02-07 11:00] VITALS: BP 136/61
--- NOTE | 2019-02-07 14:29 | NUR ---
reassessment: Pt 0% PO refusing meals past 6 days since admit. Per MD note states "doesn't want to eat anymore." Currently AOx1 w/ hx dementia; requires feeder on mechanical soft diet per CUSTOMER SUPPORT ADVISOR recs. Pt receiving ONS in addition to ensure pudding, magic cup, and yogurt w/ different meals; see below. LBM 02/06. Pt may benefit from appetite stimulant per MD approval; likely not corpak candidate at this time. Given LLE +3 pitting edema in addition to refusal of meals pt qualifies for severe malnutrition at this time; MD notified. Not appropriate for malnutrition ed given hx. Will continue to monitor. Recommend: 1. Continue mechanical soft diet with thin liquid w/ feeder per CUSTOMER SUPPORT ADVISOR recs 2. Routine bowel care 3. Encourage hydration and PO intake; consider appetite stimulant per MD approval 4. ensure enlive with lunch and dinner-notify MD 5. Yogurt QD at breakfast; Ensure pudding BIDLD; Magic cup QD at dinner Addendum: 02/07/19 at [address] Amended: Links added.
[2019-02-07] MEDS ORDERED: docusate sodium 100mg/10ml UD cup PO PRN (14:40)
[2019-02-07 15:00] VITALS: BP 108/70
[2019-02-07 18:00] VITALS: BP 141/82
--- NOTE | 2019-02-07 18:25 | NUR ---
Patient in room PCU 3024P. I have received report from PRATIBHA Shaikh and had the opportunity to ask questions and assume patient care. Pt was moved today to 27B. He is resting comfortably with no sign of distress. His appetite remains poor. He is in 2L of oxygen via NC. Will continue to monitor
[2019-02-07] MEDS: CefTRIAXone 2gm/D5W 50ml 50 ML IV SCH ×2 (21:10→23:24)
[2019-02-07] MEDS: ROSUVASTATIN CALCIUM 40 MG PO SCH (21:16)
[2019-02-07 22:00] VITALS: BP 112/54
[2019-02-07] MEDS ORDERED: tPA-cathflo 2 MG/2 ml IV flush IVF ONE ×2 (22:05)
--- NOTE | 2019-02-07 22:21 | NUR ---
UNABLE TO FLUSH TWO LUMENS, THIRD LUMEN WILL BARELY FLUSH. ORDERS FOR CATHFLO OBTAINED.
[2019-02-08] MEDS ORDERED: tPA-cathflo 2 MG/2 ml IV flush IVF PRN
[2019-02-08 02:00] VITALS: BP 132/60
--- NOTE | 2019-02-08 06:05 | NUR ---
Problems reprioritized. Patient report given, questions answered & plan of care reviewed with PRATIBHA Shaikh. Pt stable at shift change
--- NOTE | 2019-02-08 06:34 | NUR ---
Patient in room PCU 3027. I have received report from Jose Enrique and had the opportunity to ask questions and assume patient care.
[2019-02-08 07:00] VITALS: BP 143/53
[2019-02-08] MEDS: K and/or MAG REPLACEMENT MC SCH (08:00)
[2019-02-08] MEDS: moxifloxacin 0.5% ophthalmic drops 3ml EACHEYE SCH ×2 (08:35→20:39)
[2019-02-08] MEDS: phenytoin 100mg/4ml ***ORAL SUSPENSION PO SCH ×3 (08:35→20:45)
[2019-02-08] MEDS: metoprolol tartrate 25mg tablet PO SCH ×2 (08:36→20:44)
[2019-02-08] MEDS: lactobacillus rhamnosus 10,000 MMU CELLS/CAPSULE PO SCH ×3 (08:36→20:53)
[2019-02-08] MEDS: amiodarone 200mg tablet PO SCH ×2 (08:36→20:44)
[2019-02-08] MEDS: aspirin 81mg tab.chew PO SCH (08:36)
[2019-02-08] MEDS: digoxin 125mcg (0.125mg) tablet PO SCH (08:37)
[2019-02-08 09:23] LABS: BASOPHILS # (AUTO) 0.1 X10'3 (0-0.2); BASOPHILS % (AUTO) 0.8 % (0-1); EOSINOPHILS # (AUTO) 0.6 X10'3 (0-0.9); EOSINOPHILS % (AUTO) 7.3 % (0-6); HEMATOCRIT 34.7 % (42.0-52.0); HEMOGLOBIN 11.9 g/dl (14.0-17.9); LYMPHOCYTES # (AUTO) 1.2 X10'3 (1.1-4.8); LYMPHOCYTES % (AUTO) 15.5 % (21-51); MEAN CORPUSCULAR HEMOGLOBIN 33.9 PG (27.0-31.0); MEAN CORPUSCULAR HGB CONC 34.5 g/dL (33.0-36.5); MEAN CORPUSCULAR VOLUME 98.3 FL (78-98); MEAN PLATELET VOLUME 8.3 FL (7.4-10.4); MONOCYTES # (AUTO) 1.2 X10'3 (0-0.9); MONOCYTES % (AUTO) 14.9 % (2-12); NEUTROPHILS # (AUTO) 4.8 X10'3 (1.8-7.7); NEUTROPHILS % (AUTO) 61.5 % (42-75); PLATELET COUNT 260 X10'3 (140-440); RED BLOOD COUNT 3.53 X10'6 (4.70-6.10); RED CELL DISTRIBUTION WIDTH 13.7 % (11.5-14.5); WHITE BLOOD COUNT 7.8 X10'3 (4.5-11.0)
[2019-02-08 09:34] LABS: ALBUMIN 2.1 G/DL (3.4-5.0); ANION GAP 7 (8-16); BLOOD UREA NITROGEN 14 MG/DL (7-18); BUN/CREATININE RATIO 17.7 (5.4-32.0); CHLORIDE 108 MMOL/L (99-107); CREATININE 0.79 MG/DL (0.60-1.10); GLUCOSE 103 MG/DL (70-104); SODIUM 144 MMOL/L (135-145); TOTAL CARBON DIOXIDE 29.5 MMOL/L (24-32); eGFR > 90 ML/MIN
[2019-02-08 11:00] VITALS: BP 125/62
[2019-02-08 15:00] VITALS: BP 127/61
--- NOTE | 2019-02-08 16:34 | NUR ---
Page sent: PAGER ID: [phone] MESSAGE: Rm. [id number] Ash Diamond. Would you like me to add labs for this patient for the morning? PRATIBHA Grijalva ext [phone]
--- NOTE | 2019-02-08 18:18 | NUR ---
Problems reprioritized. Patient report given, questions answered & plan of care reviewed with
--- NOTE | 2019-02-08 18:30 | NUR ---
Patient in room PCU 3027. I have received report from Juli Mcwilliams and had the opportunity to ask questions and assume patient care.
[2019-02-08 18:33] VITALS: BP 147/72
--- NOTE | 2019-02-08 19:00 | NUR ---
rolled and turn pt. replaced optifoam that had rolled up.
[2019-02-08] MEDS: CefTRIAXone 2gm/D5W 50ml 50 ML IV SCH (20:41)
[2019-02-08] MEDS: ROSUVASTATIN CALCIUM 40 MG PO SCH ×2 (20:45→20:54)
[2019-02-08 22:43] VITALS: BP 130/60
[2019-02-09 02:59] VITALS: BP 128/57
[2019-02-09 06:00] VITALS: BP 124/53
--- NOTE | 2019-02-09 06:00 | NUR ---
Problems reprioritized. Patient report given, questions answered & plan of care reviewed with Hawa MCKINNON.
[2019-02-09 06:23] LABS: BASOPHILS # (AUTO) 0.1 X10'3 (0-0.2); BASOPHILS % (AUTO) 0.9 % (0-1); EOSINOPHILS # (AUTO) 0.5 X10'3 (0-0.9); EOSINOPHILS % (AUTO) 6.2 % (0-6); HEMATOCRIT 33.1 % (42.0-52.0); HEMOGLOBIN 11.6 g/dl (14.0-17.9); LYMPHOCYTES # (AUTO) 1.6 X10'3 (1.1-4.8); MEAN CORPUSCULAR HEMOGLOBIN 34.4 PG (27.0-31.0); MEAN CORPUSCULAR VOLUME 98.2 FL (78-98); MEAN PLATELET VOLUME 8.5 FL (7.4-10.4); MONOCYTES # (AUTO) 1.1 X10'3 (0-0.9); MONOCYTES % (AUTO) 13.8 % (2-12); NEUTROPHILS % (AUTO) 60.1 % (42-75); PLATELET COUNT 263 X10'3 (140-440); RED BLOOD COUNT 3.37 X10'6 (4.70-6.10); RED CELL DISTRIBUTION WIDTH 13.6 % (11.5-14.5); WHITE BLOOD COUNT 8.3 X10'3 (4.5-11.0)
--- NOTE | 2019-02-09 06:51 | NUR ---
Patient in room PCU 3027. I have received report from Betsy and had the opportunity to ask questions and assume patient care.
[2019-02-09 06:59] LABS: ALANINE AMINOTRANSFERASE 20 U/L (12-78); ALBUMIN/GLOBULIN RATIO 0.6 (1.1-1.5); ALKALINE PHOSPHATASE 56 IU/L (46-116); ANION GAP 8 (8-16); ASPARTATE AMINO TRANSFERASE 24 U/L (10-37); BILIRUBIN,TOTAL 0.3 MG/DL (0.1-1.0); BLOOD UREA NITROGEN 13 MG/DL (7-18); BUN/CREATININE RATIO 13.1 (5.4-32.0); CALCIUM 7.8 MG/DL (8.5-10.1); CHLORIDE 107 MMOL/L (99-107); CREATININE 0.99 MG/DL (0.60-1.10); GLUCOSE 91 MG/DL (70-104); POTASSIUM 4.3 MMOL/L (3.5-5.1); SODIUM 144 MMOL/L (135-145); TOTAL CARBON DIOXIDE 28.7 MMOL/L (24-32); TOTAL PROTEIN 5.6 G/DL (6.4-8.2); eGFR 72 ML/MIN
[2019-02-09] MEDS: K and/or MAG REPLACEMENT MC SCH (08:00)
[2019-02-09] MEDS: amiodarone 200mg tablet PO SCH ×2 (08:14→21:09)
[2019-02-09] MEDS: phenytoin 100mg/4ml ***ORAL SUSPENSION PO SCH ×3 (08:14→21:09)
[2019-02-09] MEDS: aspirin 81mg tab.chew PO SCH (08:15)
[2019-02-09] MEDS: metoprolol tartrate 25mg tablet PO SCH ×2 (08:15→21:08)
[2019-02-09] MEDS: digoxin 125mcg (0.125mg) tablet PO SCH (08:18)
[2019-02-09] MEDS: moxifloxacin 0.5% ophthalmic drops 3ml EACHEYE SCH ×2 (08:19→21:03)
[2019-02-09 11:00] VITALS: BP 136/61
[2019-02-09] MEDS: lactobacillus rhamnosus 10,000 MMU CELLS/CAPSULE PO SCH ×2 (11:18→21:17)
[2019-02-09] MEDS: magnesium hydroxide 30ml (MOM) UD suspension PO PRN (11:19)
[2019-02-09] MEDS: lactose-reduced food (Ensure Enlive) - 237ml bottle PO SCH ×2 (12:30→17:33)
[2019-02-09 15:00] VITALS: BP 129/64
--- NOTE | 2019-02-09 16:29 | NUR ---
Reassessment: Pt s/p BSS this morning with ST recs pureed diet with nectar thick liquids d/t fluctuating alertness and pt with a tendency to gulp liquids and eat too quickly however pt still with active mechanical soft diet. D/w RN to d/c mechanical soft diet and Ensure Enlive as it is no longer an appropriate liquid for pt. Pt with a better appetite per physical assessment, previously with 0-25% PO intake up to 50% at lunch today. Discussed ONS options with RN who believes pt would like the nectar thickened chocolate milk TID to optimize PO intake and be able to be used for med pass, d/w dietary. Per RN pt now with a feeder. LBM 02/06, pt given first dose of MoM today. Will continue to follow. Recommend: 1. Continue pureed diet with nectar thick liquid w/ feeder per ST recs 2. Encourage hydration and PO intake; consider appetite stimulant per MD approval 3. [place] thick chocolate milk TID 4. Yogurt QD at breakfast; Ensure pudding BIDLD; Magic cup QD at dinner 5. Routine bowel care 6. Wt per rx Addendum: 02/09/19 at [address] Amended: Links added.
--- NOTE | 2019-02-09 18:20 | NUR ---
Problems reprioritized. Patient report given, questions answered & plan of care reviewed with
--- NOTE | 2019-02-09 18:21 | NUR ---
[place] documentation: I have reviewed and agree with interventions, assessments performed and documented by Valentine MCKINNON. [place] Medication Administration: For this medication-pass time frame, medication were reviewed, dispensed, administered and documented per hospital policy by Valentine MCKINNON .
--- NOTE | 2019-02-09 18:30 | NUR ---
Patient in room PCU 3027. I have received report from ubaldo MCKINNON and had the opportunity to ask questions and assume patient care.
[2019-02-09 19:00] VITALS: BP 127/69
[2019-02-09] MEDS: ROSUVASTATIN CALCIUM 40 MG PO SCH (21:00)
[2019-02-09] MEDS: CefTRIAXone 2gm/D5W 50ml 50 ML IV SCH (21:09)
[2019-02-09 23:00] VITALS: BP 129/72
[2019-02-10 02:45] VITALS: BP 139/117
--- NOTE | 2019-02-10 06:30 | NUR ---
Patient in room PCU 3028e. I have received report from Betsy MCKINNON and had the opportunity to ask questions and assume patient care. Pt asleep at this time, no distress noted. Bed alarm on.
--- NOTE | 2019-02-10 06:33 | NUR ---
pt rested through the night. turned him routinely. Problems reprioritized. Patient report given, questions answered & plan of care reviewed with Nichol and Hawa RNs.
--- NOTE | 2019-02-10 06:45 | NUR ---
Patient in room PCU 3027. I have received report from PRATIBHA Meyer and had the opportunity to ask questions and assume patient care.
[2019-02-10 07:00] VITALS: BP 135/71
[2019-02-10] MEDS: K and/or MAG REPLACEMENT MC SCH (08:00)
[2019-02-10] MEDS: moxifloxacin 0.5% ophthalmic drops 3ml EACHEYE SCH ×2 (09:11→21:30)
[2019-02-10] MEDS: aspirin 81mg tab.chew PO SCH (09:11)
[2019-02-10] MEDS: amiodarone 200mg tablet PO SCH ×2 (09:11→21:31)
[2019-02-10] MEDS: phenytoin 100mg/4ml ***ORAL SUSPENSION PO SCH ×3 (09:11→21:30)
[2019-02-10] MEDS: lactobacillus rhamnosus 10,000 MMU CELLS/CAPSULE PO SCH ×2 (09:13→21:38)
[2019-02-10] MEDS: digoxin 125mcg (0.125mg) tablet PO SCH (09:13)
[2019-02-10] MEDS: metoprolol tartrate 25mg tablet PO SCH ×2 (09:14→21:32)
--- NOTE | 2019-02-10 09:30 | NUR ---
Dr. Palm at bedside. 24 hour tele order discussed, tele to be DC'd if no events in past 24 hours.
[2019-02-10 11:00] VITALS: BP 145/71
[2019-02-10] MEDS: lactose-reduced food (Ensure Enlive) - 237ml bottle PO SCH ×3 (12:30→18:34)
[2019-02-10 15:00] VITALS: BP 113/56
--- NOTE | 2019-02-10 17:54 | NUR ---
[place] documentation: I have reviewed and agree with all interventions, assessments performed and documented by PRATIBHA Shaikh.
[2019-02-10 18:00] VITALS: BP 123/74
--- NOTE | 2019-02-10 18:25 | NUR ---
Problems reprioritized. Patient report given, questions answered & plan of care reviewed with PRATIBHA Espinal.
[2019-02-10] MEDS: ROSUVASTATIN CALCIUM 40 MG PO SCH (21:38)
[2019-02-10 22:00] VITALS: BP 127/66
--- NOTE | 2019-02-11 06:25 | NUR ---
Problems reprioritized. Patient report given, questions answered & plan of care reviewed with Natasha MCKINNON and Peterson MCKINNON.
[2019-02-11 06:35] VITALS: BP 131/57
[2019-02-11] MEDS: aspirin 81mg tab.chew PO SCH (10:01)
[2019-02-11] MEDS: lactobacillus rhamnosus 10,000 MMU CELLS/CAPSULE PO SCH ×2 (10:01→20:57)
[2019-02-11] MEDS: amiodarone 200mg tablet PO SCH ×2 (10:01→21:00)
[2019-02-11] MEDS: phenytoin 100mg/4ml ***ORAL SUSPENSION PO SCH ×3 (10:02→21:14)
[2019-02-11] MEDS: digoxin 125mcg (0.125mg) tablet PO SCH (10:06)
[2019-02-11] MEDS: metoprolol tartrate 25mg tablet PO SCH ×2 (10:06→20:57)
[2019-02-11] MEDS: moxifloxacin 0.5% ophthalmic drops 3ml EACHEYE SCH ×2 (10:06→20:51)
--- NOTE | 2019-02-11 10:44 | NUR ---
Reassessment: Pt continues with pureed food and nectar thick liquid per ST recs. Pt continues with poor PO intake 0-25% not meeting nutrient needs. Noted that RN has ordered Ensure High Protein, d/w RN that if pt is to receive ONS it will need to be thickened to appropriate texture and recommended ONS change to Ensure Enlive for the additional kcal/protein given low PO intake. D/w RN that pt may benefit from appetite stimulant per MD approval given low appetite and low PO intake with maximum acute care nursing assistant at meals. Per MD notes CM/SW working on d/c plan. LBM 02/10. Will continue to follow. Recommend: 1. Continue pureed diet with nectar thick liquid w/ feeder per ST recs 2. Encourage hydration and PO intake; consider appetite stimulant per MD approval 3. [place] thick chocolate milk TID; Ensure Enlive TID will need to be thickened (2 packets of Simply Thick [place] Consistency for 8 oz of liquid) 4. Yogurt QD at breakfast; Ensure pudding BIDLD; Magic cup QD at dinner 5. Routine bowel care 6. Wt per rx Addendum: 02/11/19 at [address] Amended: Links added.
[2019-02-11 11:55] VITALS: BP 140/68
[2019-02-11] MEDS ORDERED: lactose-reduced food (Ensure High Protein) 237ml bottle PO SCH (13:00)
[2019-02-11 16:24] VITALS: BP 133/56
[2019-02-11 18:00] VITALS: BP 138/53
--- NOTE | 2019-02-11 18:13 | NUR ---
Problems reprioritized. Patient report given, questions answered & plan of care reviewed with PRATIBHA SIDDIQUI.
--- NOTE | 2019-02-11 18:48 | NUR ---
Patient in room PCU 3027. I have received report from Peterson MCKINNON/ Natasha MCKINNON and had the opportunity to ask questions and assume patient care. Patient declined additional food, denies needs at this time. Will continue to monitor.
[2019-02-11] MEDS: ROSUVASTATIN CALCIUM 40 MG PO SCH (20:59)
[2019-02-11 22:00] VITALS: BP 147/76
[2019-02-12 02:30] VITALS: BP 133/76
[2019-02-12 06:00] VITALS: BP 123/60
--- NOTE | 2019-02-12 06:40 | NUR ---
Problems reprioritized. Patient report given, questions answered & plan of care reviewed with Carrie MCKINNON. Patient resting having vitals taken, in no distress.
[2019-02-12] MEDS: metoprolol tartrate 25mg tablet PO SCH ×2 (07:55→20:42)
[2019-02-12] MEDS: digoxin 125mcg (0.125mg) tablet PO SCH (07:57)
[2019-02-12] MEDS: phenytoin 100mg/4ml ***ORAL SUSPENSION PO SCH ×3 (07:58→23:31)
[2019-02-12] MEDS: aspirin 81mg tab.chew PO SCH (07:58)
[2019-02-12] MEDS: lactobacillus rhamnosus 10,000 MMU CELLS/CAPSULE PO SCH ×2 (07:58→20:42)
[2019-02-12] MEDS: amiodarone 200mg tablet PO SCH ×2 (08:52→20:42)
[2019-02-12] MEDS: moxifloxacin 0.5% ophthalmic drops 3ml EACHEYE SCH ×2 (08:52→23:31)
--- NOTE | 2019-02-12 10:12 | NUR ---
Patient in room PCU 3027. I have received report from PRATIBHA Terrazas and had the opportunity to ask questions and assume patient care.
[2019-02-12 11:00] VITALS: BP 114/54
[2019-02-12] MEDS ORDERED: phenytoin 100mg/4ml ***ORAL SUSPENSION PO SCH (14:03)
[2019-02-12 15:00] VITALS: BP 119/46
[2019-02-12 18:00] VITALS: BP 123/47
--- NOTE | 2019-02-12 18:23 | NUR ---
Problems reprioritized. Patient report given, questions answered & plan of care reviewed with PRATIBHA Quispe.
--- NOTE | 2019-02-12 18:25 | NUR ---
Patient in room PCU 3028F. I have received report from PRATIBHA Galindo and had the opportunity to ask questions and assume patient care.
[2019-02-12 22:00] VITALS: BP 112/61
[2019-02-12] MEDS: ROSUVASTATIN CALCIUM 40 MG PO SCH (23:30)
[2019-02-13 02:00] VITALS: BP 132/43
--- NOTE | 2019-02-13 06:00 | NUR ---
Problems reprioritized. Patient report given, questions answered & plan of care reviewed with PRATIBHA Galindo. Pt is awake, resting comfortably, and in stable condition.
--- NOTE | 2019-02-13 06:19 | NUR ---
Patient in room PCU 3027. I have received report from PRATIBHA Quispe and had the opportunity to ask questions and assume patient care.
[2019-02-13 07:00] VITALS: BP 122/53
[2019-02-13] MEDS: phenytoin 100mg/4ml ***ORAL SUSPENSION PO SCH ×3 (08:57→20:57)
[2019-02-13] MEDS: moxifloxacin 0.5% ophthalmic drops 3ml EACHEYE SCH ×2 (08:57→20:59)
[2019-02-13] MEDS: lactobacillus rhamnosus 10,000 MMU CELLS/CAPSULE PO SCH ×2 (08:57→20:53)
[2019-02-13] MEDS: amiodarone 200mg tablet PO SCH ×2 (08:57→20:53)
[2019-02-13] MEDS: digoxin 125mcg (0.125mg) tablet PO SCH (08:58)
[2019-02-13] MEDS: aspirin 81mg tab.chew PO SCH (08:59)
[2019-02-13] MEDS: metoprolol tartrate 25mg tablet PO SCH ×2 (09:07→20:00)
[2019-02-13 11:00] VITALS: BP 128/60
--- NOTE | 2019-02-13 13:00 | NUR ---
PT in to work with pt., up to recliner.
[2019-02-13 15:00] VITALS: BP 123/68
[2019-02-13 18:00] VITALS: BP 135/60
--- NOTE | 2019-02-13 18:05 | NUR ---
Patient in room PCU 3020Y. I have received report from PRATIBHA Galindo and had the opportunity to ask questions and assume patient care. Pt is awake, resting comfortably with no sign of distress. Will continue to monitor
--- NOTE | 2019-02-13 18:14 | NUR ---
Problems reprioritized. Patient report given, questions answered & plan of care reviewed with Jose Enrique.
[2019-02-13] MEDS: ROSUVASTATIN CALCIUM 40 MG PO SCH (21:07)
[2019-02-13 22:00] VITALS: BP 150/59
[2019-02-14 02:00] VITALS: BP 141/64
[2019-02-14 06:00] VITALS: BP 124/53
--- NOTE | 2019-02-14 06:17 | NUR ---
Problems reprioritized. Patient report given, questions answered & plan of care reviewed with PRATIBHA Dallas. Pt is stable at shift change
--- NOTE | 2019-02-14 06:20 | NUR ---
Patient in room PCU 3027. I have received report from PRATIBHA Dallas and had the opportunity to ask questions and assume patient care.
[2019-02-14] MEDS: metoprolol tartrate 25mg tablet PO SCH ×2 (08:00→20:21)
[2019-02-14] MEDS: digoxin 125mcg (0.125mg) tablet PO SCH (08:00)
[2019-02-14] MEDS: lactobacillus rhamnosus 10,000 MMU CELLS/CAPSULE PO SCH ×2 (08:09→20:21)
[2019-02-14] MEDS: amiodarone 200mg tablet PO SCH ×3 (08:09→20:21)
[2019-02-14] MEDS: phenytoin 100mg/4ml ***ORAL SUSPENSION PO SCH ×3 (08:11→20:21)
[2019-02-14] MEDS: aspirin 81mg tab.chew PO SCH (08:13)
[2019-02-14] MEDS: moxifloxacin 0.5% ophthalmic drops 3ml EACHEYE SCH ×2 (08:13→20:21)
[2019-02-14 11:00] VITALS: BP 128/65
--- NOTE | 2019-02-14 14:02 | NUR ---
Reassessment: Pt poor PO continues w/ dementia 0-25% avg meals receiving multiple forms of ONS to try and meet needs. KENNEDY d/w RN regarding appetite stimulant per MD approval. LBM 02/11. Pending placement per MD note. Will continue to monitor. Recommend: 1. Continue pureed diet with nectar thick liquid w/ feeder per ST recs 2. Encourage hydration and PO intake; consider appetite stimulant per MD approval 3. Vale thick chocolate milk TID; Ensure Enlive TID will need to be thickened (2 packets of Simply Thick Vale Consistency for 8 oz of liquid) 4. Yogurt QD at breakfast; Ensure pudding BIDLD; Magic cup QD at dinner 5. Routine bowel care 6. Weekly wts Addendum: 02/14/19 at [address] Amended: Links added.
[2019-02-14 15:00] VITALS: BP 109/49
--- NOTE | 2019-02-14 15:43 | NUR ---
Message sent to Dr. Beard - Mr. 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 He is not eating. Thanks, Carrie, [facility], ext [phone]
[2019-02-14 18:00] VITALS: BP 117/56
--- NOTE | 2019-02-14 18:13 | NUR ---
Problems reprioritized. Patient report given, questions answered & plan of care reviewed with PRATIBHA Rios.
--- NOTE | 2019-02-14 18:42 | NUR ---
Patient in room PCU 3027. I have received report from Carrie MCKINNON and had the opportunity to ask questions and assume patient care.
[2019-02-14] MEDS: ROSUVASTATIN CALCIUM 40 MG PO SCH (20:22)
[2019-02-14] MEDS: megestrol acetate 400mg/10ml UD oral suspension PO SCH (20:22)
[2019-02-14 22:00] VITALS: BP 104/48
[2019-02-15 02:00] VITALS: BP 121/52
--- NOTE | 2019-02-15 05:50 | NUR ---
Orientee documentation: I have reviewed and agree with all interventions, assessments performed and documented by Ana MCKINNON. Orientee Medication Administration: For this medication-pass time frame, all medication were reviewed, dispensed, administered and documented per hospital policy by Ana MCKINNON.
--- NOTE | 2019-02-15 06:14 | NUR ---
Problems reprioritized. Patient report given, questions answered & plan of care reviewed with Dot MCKINNON.
--- NOTE | 2019-02-15 06:37 | NUR ---
Patient in room PCU 3027. I have received report from López MCKINNON and had the opportunity to ask questions and assume patient care. Patient asleep in bed. All immediate needs met. will continue to monitor.
[2019-02-15 07:00] VITALS: BP 129/69
[2019-02-15] MEDS: metoprolol tartrate 25mg tablet PO SCH ×2 (08:00→20:00)
[2019-02-15] MEDS: digoxin 125mcg (0.125mg) tablet PO SCH (08:00)
[2019-02-15] MEDS: aspirin 81mg tab.chew PO SCH (08:56)
[2019-02-15] MEDS: lactobacillus rhamnosus 10,000 MMU CELLS/CAPSULE PO SCH ×2 (08:56→20:13)
[2019-02-15] MEDS: amiodarone 200mg tablet PO SCH ×2 (08:56→20:13)
[2019-02-15] MEDS: megestrol acetate 400mg/10ml UD oral suspension PO SCH ×2 (08:57→20:13)
[2019-02-15] MEDS: phenytoin 100mg/4ml ***ORAL SUSPENSION PO SCH ×3 (08:57→20:13)
[2019-02-15] MEDS: moxifloxacin 0.5% ophthalmic drops 3ml EACHEYE SCH ×2 (09:01→20:13)
[2019-02-15 11:00] VITALS: BP 110/66
--- NOTE | 2019-02-15 12:42 | NUR ---
Per Dr. Pelletier: Renew order for hankins catheter.
[2019-02-15 15:00] VITALS: BP 112/67
[2019-02-15 18:00] VITALS: BP 128/47
--- NOTE | 2019-02-15 18:06 | NUR ---
Patient in room PCU 3022A. I have received report from Dot MCKINNON and had the opportunity to ask questions and assume patient care.
[2019-02-15] MEDS: ROSUVASTATIN CALCIUM 40 MG PO SCH (20:14)
[2019-02-15] MEDS: magnesium hydroxide 30ml (MOM) UD suspension PO PRN (20:14)
[2019-02-15 22:00] VITALS: BP 139/52
[2019-02-16 02:00] VITALS: BP 132/48
--- NOTE | 2019-02-16 06:22 | NUR ---
Problems reprioritized. Patient report given, questions answered & plan of care reviewed with Dot MCKINNON.
--- NOTE | 2019-02-16 06:36 | NUR ---
Patient in room PCU 3027. I have received report from Blanca MCKINNON/Xochilt RN and had the opportunity to ask questions and assume patient care.
[2019-02-16 07:00] VITALS: BP 122/56
[2019-02-16] MEDS: phenytoin 100mg/4ml ***ORAL SUSPENSION PO SCH ×3 (08:16→20:24)
[2019-02-16] MEDS: moxifloxacin 0.5% ophthalmic drops 3ml EACHEYE SCH ×2 (08:16→20:24)
[2019-02-16] MEDS: amiodarone 200mg tablet PO SCH ×2 (08:16→20:25)
[2019-02-16] MEDS: lactobacillus rhamnosus 10,000 MMU CELLS/CAPSULE PO SCH ×2 (08:16→20:25)
[2019-02-16] MEDS: aspirin 81mg tab.chew PO SCH (08:19)
[2019-02-16] MEDS: digoxin 125mcg (0.125mg) tablet PO SCH (08:19)
[2019-02-16] MEDS: megestrol acetate 400mg/10ml UD oral suspension PO SCH ×2 (08:19→20:24)
[2019-02-16] MEDS: metoprolol tartrate 25mg tablet PO SCH ×2 (08:19→20:25)
[2019-02-16 11:00] VITALS: BP 120/53
--- NOTE | 2019-02-16 14:37 | NUR ---
Paged Dr. Pelletier: PAGER ID: [phone] MESSAGE: RE: Ash Diamond [id number]. Can you renew order for hankins catheter? Thank you Dr. Pelletier. Dot [phone]
--- NOTE | 2019-02-16 14:46 | NUR ---
Per Dr. Prabhu LONGO to renew hankins catheter.
[2019-02-16 15:00] VITALS: BP 112/54
[2019-02-16 18:00] VITALS: BP 115/62
--- NOTE | 2019-02-16 18:23 | NUR ---
Patient in room PCU 3027. I have received report from Dot MCKINNON and Alessia RN and had the opportunity to ask questions and assume patient care.
--- NOTE | 2019-02-16 18:24 | NUR ---
Problems reprioritized. Patient report given, questions answered & plan of care reviewed with López MCKINNON. Patient stable at transfer of care.
--- NOTE | 2019-02-16 18:24 | NUR ---
Problems reprioritized. Patient report given, questions answered & plan of care reviewed with Blanca MCKINNON/Xochilt MCKINNON. Pt stable at transfer of care.
--- NOTE | 2019-02-16 18:31 | NUR ---
Orientee documentation: I have reviewed and agree with all interventions, assessments performed and documented by PRATIBHA Aggarwal. Orientee Medication Administration: For this medication-pass time frame, all medication were reviewed, dispensed, administered and documented per hospital policy by PRATIBHA Aggarwal.
[2019-02-16] MEDS: ROSUVASTATIN CALCIUM 40 MG PO SCH (20:24)
[2019-02-16] MEDS: magnesium hydroxide 30ml (MOM) UD suspension PO PRN (20:24)
--- NOTE | 2019-02-16 21:30 | NUR ---
Patient given prune juice and milk of mag for no BM since 02/11/19.
[2019-02-16 22:00] VITALS: BP 102/46
--- NOTE | 2019-02-16 22:00 | NUR ---
Bender cath removed without issues and patient has voided since catheter removal.
[2019-02-17 02:00] VITALS: BP 122/43
--- NOTE | 2019-02-17 03:30 | NUR ---
Patient bladder scanned since he has only voided once since hankins removal and has been about six hours but highest reading was 124mls. Will continue to monitor.
--- NOTE | 2019-02-17 04:18 | NUR ---
Patient voided again at this time.
[2019-02-17 06:00] VITALS: BP 113/47
--- NOTE | 2019-02-17 06:06 | NUR ---
Problems reprioritized. Patient report given, questions answered & plan of care reviewed with Dot MCKINNON and Alessia RN.
--- NOTE | 2019-02-17 06:20 | NUR ---
Patient in room PCU 3027. I have received report from Blanca/ Ana and had the opportunity to ask questions and assume patient care. Patient asleep at this time. All immediate needs med.
--- NOTE | 2019-02-17 06:21 | NUR ---
Patient in room PCU 3027. I have received report from Blanca MCKINNON/Xochilt RN and had the opportunity to ask questions and assume patient care.
--- NOTE | 2019-02-17 08:15 | NUR ---
Patient stable for transfer to [facility]. Report called to receiving RNMelvin. Wound photo taken for chart. All patients' belongings packed up and sent with patient. Triple lumen PICC discontinued, cannula intact. No telemetry. Patient transported by [facility] personnel via gurney. Vital signs stable at transfer. Transfer packet sent.
--- NOTE | 2019-02-17 09:13 | NUR ---
Orientee documentation: I have reviewed and agree with all interventions, assessments performed and documented by PRATIBHA Aggarwal.
== END 2019-02-17 08:08 | DRG 280 ==
LOC: ER 13:36 → PCU 3S 19:14 → EEVIPCON 19:14 → CMPBEDREQ 19:35 → ICU 2S 02-02 05:46 → PCU 3S 02-03 16:40
PROVIDERS: ADMIT Internal Medicine; ATTEND Internal Medicine
PROC: 02HV33Z Insertion of Infusion Device into Superior Vena Cava, Percutaneous Approach (ICD-10-PCS; principal; 2019-02-02)
PROC: 4A02X4A Measurement of Cardiac Electrical Activity, Guidance, External Approach (ICD-10-PCS; 2019-02-02)
PROC: B548ZZA Ultrasonography of Superior Vena Cava, Guidance (ICD-10-PCS; 2019-02-02)
DX: I21.4 Non-ST elevation (NSTEMI) myocardial infarction (principal); G93.41 Metabolic encephalopathy; R57.1 Hypovolemic shock; I69.354 Hemiplegia and hemiparesis following cerebral infarction affecting left non-dominant side; E78.5 Hyperlipidemia, unspecified; F03.90 Unspecified dementia, unspecified severity, without behavioral disturbance, psychotic disturbance, mood disturbance, and anxiety; G40.909 Epilepsy, unspecified, not intractable, without status epilepticus; I10 Essential (primary) hypertension; H10.9 Unspecified conjunctivitis; I35.0 Nonrheumatic aortic (valve) stenosis; Z66 Do not resuscitate; I48.0 Paroxysmal atrial fibrillation; Z79.01 Long term (current) use of anticoagulants; I25.2 Old myocardial infarction; Z88.8 Allergy status to other drugs, medicaments and biological substances; Z79.899 Other long term (current) drug therapy; Z87.440 Personal history of urinary (tract) infections
CPT/HCPCS: 36415; 36569; 36600; 70450; 71045; 73020; 76937; 80048; 80053; 80162; 80185; 80305; 80320; 81001; 82803; 82948; 83605; 83735; 83880; 84100; 84132; 84443; 84484; 85018; 85025; 85610; 85730; 87040; 87081; 92508; 92616; 93005; 93306; 93926; 93971; 96360; 96361; 97110; 97116; 97162; 97530; 97535; 99285; G0378; J0282; J0696; J1160; J1644; J2997; J3480; J7030; P9047

== ENCOUNTER 2019-05-16 19:17 | Inpatient (IN) | payer MEDICAID, MEDICARE, OTHER ==
[~2019-05-16] VITALS: Ht 180.3 cm; Wt 54.0 kg
[~2019-05-16 19:17] MED LIST changes: -ACET325T55 PO; +APIX5TAB3 PO; -ASCO-105 PO; -CALC-1051 PO; +CALC250T2 PO; -LORA10TA7 PO; -ONDA4TAB6 PO; +OXYB5TAB16 PO; -OXYB5TAB29 PO; -PANT-47 PO; -WARF3TAB56 PO
--- NOTE | 2019-05-16 19:30 | NUR ---
Trauma Level II called off at this time by Dr. Fair.
[2019-05-16 19:52] LABS: ALANINE AMINOTRANSFERASE 17 U/L (12-78); ALBUMIN 2.6 G/DL (3.4-5.0); ALBUMIN/GLOBULIN RATIO 0.5 (1.1-1.5); ALKALINE PHOSPHATASE 92 IU/L (46-116); ANION GAP 13 (8-16); ASPARTATE AMINO TRANSFERASE 31 U/L (10-37); BILIRUBIN,TOTAL 0.6 MG/DL (0.1-1.0); BLOOD UREA NITROGEN 28 MG/DL (7-18); BUN/CREATININE RATIO 18.9 (5.4-32.0); CALCIUM 9.1 MG/DL (8.5-10.1); CHLORIDE 102 MMOL/L (99-107); CREATININE 1.48 MG/DL (0.60-1.10); GLUCOSE 116 MG/DL (70-104); POTASSIUM 4.3 MMOL/L (3.5-5.1); SODIUM 139 MMOL/L (135-145); TOTAL CARBON DIOXIDE 24.1 MMOL/L (24-32); TOTAL PROTEIN 7.8 G/DL (6.4-8.2); eGFR 45 ML/MIN
[2019-05-16 19:54] LABS: RED BLOOD COUNT 4.52 X10'6 (4.70-6.10)
[2019-05-16 19:56] LABS: BASOPHILS % (AUTO) 0.3 % (0-1); EOSINOPHILS % (AUTO) 0.1 % (0-6); HEMATOCRIT 45.2 % (42.0-52.0); HEMOGLOBIN 15.3 g/dl (14.0-17.9); LYMPHOCYTES # (AUTO) 1.8 X10'3 (1.1-4.8); MEAN CORPUSCULAR HEMOGLOBIN 33.9 PG (27.0-31.0); MEAN CORPUSCULAR HGB CONC 33.9 g/dL (33.0-36.5); MEAN CORPUSCULAR VOLUME 99.9 FL (78-98); MEAN PLATELET VOLUME 8.8 FL (7.4-10.4); MONOCYTES # (AUTO) 0.6 X10'3 (0-0.9); MONOCYTES % (AUTO) 10.7 % (2-12); NEUTROPHILS # (AUTO) 3.1 X10'3 (1.8-7.7); NEUTROPHILS % (AUTO) 56.9 % (42-75); PLATELET COUNT 206 X10'3 (140-440); RED CELL DISTRIBUTION WIDTH 16.2 % (11.5-14.5); WHITE BLOOD COUNT 5.5 X10'3 (4.5-11.0)
[2019-05-16 20:01] LABS: MAGNESIUM 2.4 MG/DL (1.5-2.4)
[2019-05-16 20:20] LABS: CLARITY,URINE SLIGHTLY CLOUDY (Clear); COLOR,URINE AMBER (Yellow); GLUCOSE, URINE NEGATIVE (Neg); KETONES,URINE 40 mg/dl (Neg); LEUKOCYTE ESTERASE ,URINE NEGATIVE (Neg); NITRITES, URINE NEGATIVE (Neg); OCCULT BLOOD,URINE TRACE-LYSED (Neg); PROTEIN,URINE TRACE mg/dl (Neg); UROBILINOGEN,URINE 0.2 E.U/dL (0.2-1.0)
[2019-05-16 20:24] LABS: UA COLLECTION TYPE STRAIGHT CATH
[2019-05-16 20:32] LABS: MUCUS STRANDS MANY /LPF (Neg)
[2019-05-16 20:39] LABS: BACTERIA,URINE NONE SEEN /HPF (Neg); RBC,URINE 0-2 /HPF (0-2); WBC,URINE 0-4 /HPF (0-4)
[2019-05-16 20:40] LABS: SQUAMOUS EPITHELIAL CELL,UR FEW /LPF (FEW); URIC ACID CRYSTALS 1+ /HPF (NEGATIVE)
--- NOTE | 2019-05-16 20:57 | NUR ---
Placed phone calls to next of kin in order to collect medication reconciliation. Phone number to pt's spouse was disconnected. Phone call to pt's son was not answered.
--- NOTE | 2019-05-16 21:51 | NUR ---
Second call made to son William concerning medication reconciliation, call was not answered.
[2019-05-16] MEDS ORDERED: mag hydrox/Alum hydrox/simeth 30ml oral suspension PO PRN (21:55)
[2019-05-16] MEDS ORDERED: acetaminophen 325mg tablet PO PRN (21:55)
[2019-05-16] MEDS ORDERED: ondansetron/PF 4mg/2ml inj IV PRN (21:55)
[2019-05-16] MEDS: normal saline 1000ml 1,000 ML IV SCH (22:11)
[2019-05-17 07:23] VITALS: BP 125/51
[2019-05-17 07:27] LABS: BASOPHILS % (AUTO) 0.5 % (0-1); EOSINOPHILS % (AUTO) 0.8 % (0-6); HEMATOCRIT 36.9 % (42.0-52.0); HEMOGLOBIN 12.7 g/dl (14.0-17.9); LYMPHOCYTES # (AUTO) 1.1 X10'3 (1.1-4.8); LYMPHOCYTES % (AUTO) 26.2 % (21-51); MEAN CORPUSCULAR HEMOGLOBIN 33.9 PG (27.0-31.0); MEAN CORPUSCULAR HGB CONC 34.5 g/dL (33.0-36.5); MEAN CORPUSCULAR VOLUME 98.2 FL (78-98); MONOCYTES # (AUTO) 0.6 X10'3 (0-0.9); MONOCYTES % (AUTO) 13.7 % (2-12); NEUTROPHILS # (AUTO) 2.6 X10'3 (1.8-7.7); NEUTROPHILS % (AUTO) 58.8 % (42-75); PLATELET COUNT 195 X10'3 (140-440); RED BLOOD COUNT 3.76 X10'6 (4.70-6.10); RED CELL DISTRIBUTION WIDTH 16.3 % (11.5-14.5); WHITE BLOOD COUNT 4.4 X10'3 (4.5-11.0)
[2019-05-17 07:37] LABS: ALBUMIN 2.1 G/DL (3.4-5.0); ANION GAP 7 (8-16); BLOOD UREA NITROGEN 27 MG/DL (7-18); BUN/CREATININE RATIO 22.7 (5.4-32.0); CALCIUM 8.2 MG/DL (8.5-10.1); CHLORIDE 106 MMOL/L (99-107); CREATININE 1.19 MG/DL (0.60-1.10); GLUCOSE 86 MG/DL (70-104); SODIUM 141 MMOL/L (135-145); TOTAL CARBON DIOXIDE 28.4 MMOL/L (24-32); eGFR 58 ML/MIN
[2019-05-17 07:44] LABS: PHENYTOIN (DILANTIN) 2.4 UG/ML (10.0-20.0)
[2019-05-17] MEDS: metoprolol tartrate 25mg tablet PO SCH ×2 (08:04→19:54)
[2019-05-17] MEDS: apixaban 5mg tablet PO SCH ×2 (08:04→19:40)
[2019-05-17] MEDS: normal saline 1000ml 1,000 ML IV SCH ×2 (08:05→17:09)
[2019-05-17] MEDS: phenytoin sod ER 100mg capsule PO SCH ×4 (08:05→19:56)
[2019-05-17 10:00] VITALS: BP 124/36
--- NOTE | 2019-05-17 14:31 | NUR ---
Malnutrition consult: Pt admit w/ weakness, ALBERTO, dehydration; brought from home without actual fall but slumped in chair per MD note. Per EMR pt hx dementia currently AOx1 and RN reports able to take meds w/ yogurt but pending SP BSS to ensure safe PO. Currently 0% PO heart healthy diet. LBM 05/16. Pt wt hx bed scale in July 63.5 kg vs gurnery scale this admit 54kg; RD d/w RN regarding new bed or standing scale if possible to help w/ wt accuracy. Pt has no severe weakness or edema present. Per RN; pt does not appear cachectic and MD note documents well-developed/well-nourished appearance. Pt likely maintains stable low weight at home w/ family. Will monitor for diet advancement per SP recs and additional malnutrition criteria pending further wt/PO hx this admit. Addendum: 05/17/19 at [address] Amended: Links added.
[2019-05-17 18:00] VITALS: BP 103/43
--- NOTE | 2019-05-17 18:15 | NUR ---
Patient in room ORTHO 4022. I have received report from Chelle MCKINNON and had the opportunity to ask questions and assume patient care.
[2019-05-17 19:40] VITALS: BP 123/42
[2019-05-17 22:00] VITALS: BP 131/46
--- NOTE | 2019-05-18 06:15 | NUR ---
Problems reprioritized. Patient report given, questions answered & plan of care reviewed with Chelle MCKINNON.
[2019-05-18 06:54] VITALS: BP 128/36
[2019-05-18] MEDS: normal saline 1000ml 1,000 ML IV SCH ×3 (06:58→22:16)
[2019-05-18] MEDS: apixaban 5mg tablet PO SCH ×2 (07:46→19:52)
[2019-05-18] MEDS: phenytoin sod ER 100mg capsule PO SCH ×3 (07:46→20:05)
[2019-05-18] MEDS: metoprolol tartrate 25mg tablet PO SCH ×2 (07:47→20:05)
[2019-05-18 08:17] LABS: BASOPHILS % (AUTO) 0.9 % (0-1); EOSINOPHILS # (AUTO) 0.1 X10'3 (0-0.9); EOSINOPHILS % (AUTO) 1.7 % (0-6); HEMATOCRIT 35.6 % (42.0-52.0); HEMOGLOBIN 12.2 g/dl (14.0-17.9); LYMPHOCYTES # (AUTO) 1.6 X10'3 (1.1-4.8); LYMPHOCYTES % (AUTO) 35.4 % (21-51); MEAN CORPUSCULAR HEMOGLOBIN 33.6 PG (27.0-31.0); MEAN CORPUSCULAR HGB CONC 34.2 g/dL (33.0-36.5); MEAN CORPUSCULAR VOLUME 98.1 FL (78-98); MEAN PLATELET VOLUME 9.2 FL (7.4-10.4); MONOCYTES # (AUTO) 0.5 X10'3 (0-0.9); NEUTROPHILS # (AUTO) 2.3 X10'3 (1.8-7.7); PLATELET COUNT 186 X10'3 (140-440); RED BLOOD COUNT 3.62 X10'6 (4.70-6.10); RED CELL DISTRIBUTION WIDTH 16.5 % (11.5-14.5); WHITE BLOOD COUNT 4.6 X10'3 (4.5-11.0)
[2019-05-18 09:10] LABS: ALBUMIN 2.1 G/DL (3.4-5.0); ANION GAP 6 (8-16); BLOOD UREA NITROGEN 21 MG/DL (7-18); BUN/CREATININE RATIO 18.3 (5.4-32.0); CALCIUM 8.2 MG/DL (8.5-10.1); CHLORIDE 107 MMOL/L (99-107); CREATININE 1.15 MG/DL (0.60-1.10); GLUCOSE 86 MG/DL (70-104); POTASSIUM 3.8 MMOL/L (3.5-5.1); SODIUM 142 MMOL/L (135-145); TOTAL CARBON DIOXIDE 28.6 MMOL/L (24-32); eGFR 60 ML/MIN
[2019-05-18 10:57] VITALS: BP 105/42
[2019-05-18 18:00] VITALS: BP 112/53
--- NOTE | 2019-05-18 18:15 | NUR ---
Patient in room ORTHO 4022. I have received report from Chelle MCKINNON and had the opportunity to ask questions and assume patient care.
[2019-05-18 22:00] VITALS: BP 124/56
[2019-05-19 06:00] VITALS: BP 97/43
[2019-05-19 06:25] LABS: BASOPHILS % (AUTO) 0.7 % (0-1); EOSINOPHILS # (AUTO) 0.1 X10'3 (0-0.9); EOSINOPHILS % (AUTO) 1.8 % (0-6); HEMATOCRIT 35.1 % (42.0-52.0); HEMOGLOBIN 12.2 g/dl (14.0-17.9); LYMPHOCYTES # (AUTO) 1.3 X10'3 (1.1-4.8); LYMPHOCYTES % (AUTO) 33.3 % (21-51); MEAN CORPUSCULAR HEMOGLOBIN 34.2 PG (27.0-31.0); MEAN CORPUSCULAR HGB CONC 34.9 g/dL (33.0-36.5); MEAN PLATELET VOLUME 8.4 FL (7.4-10.4); MONOCYTES # (AUTO) 0.6 X10'3 (0-0.9); MONOCYTES % (AUTO) 13.8 % (2-12); NEUTROPHILS % (AUTO) 50.4 % (42-75); PLATELET COUNT 185 X10'3 (140-440); RED BLOOD COUNT 3.58 X10'6 (4.70-6.10); RED CELL DISTRIBUTION WIDTH 15.8 % (11.5-14.5)
--- NOTE | 2019-05-19 06:45 | NUR ---
Problems reprioritized. Patient report given, questions answered & plan of care reviewed with Carrie MCKINNON.
[2019-05-19 06:50] LABS: ALBUMIN 1.9 G/DL (3.4-5.0); ANION GAP 4 (8-16); BLOOD UREA NITROGEN 20 MG/DL (7-18); BUN/CREATININE RATIO 18.2 (5.4-32.0); CALCIUM 7.9 MG/DL (8.5-10.1); CHLORIDE 105 MMOL/L (99-107); GLUCOSE 94 MG/DL (70-104); SODIUM 138 MMOL/L (135-145); eGFR 63 ML/MIN
--- NOTE | 2019-05-19 07:14 | NUR ---
Patient in room ORTHO 4020. I have received report from Marlena Gonzalez RN and had the opportunity to ask questions and assume patient care.
[2019-05-19] MEDS: metoprolol tartrate 25mg tablet PO SCH ×2 (08:00→20:00)
[2019-05-19] MEDS: phenytoin sod ER 100mg capsule PO SCH ×3 (09:24→20:25)
[2019-05-19] MEDS: apixaban 5mg tablet PO SCH ×2 (09:27→20:25)
[2019-05-19] MEDS: normal saline 1000ml 1,000 ML IV SCH ×2 (09:35→19:52)
[2019-05-19 10:00] VITALS: BP 100/43
--- NOTE | 2019-05-19 10:19 | NUR ---
Initial: Pt s/p BSS 05/[address] recs [facility], [place]on soft food with grind meat and thin liquids with small bites and sips d/t pt with difficulty chewing. also recommends a feeder. Pt documented with average 75% PO intake down to 25% x 2 most recent meals receiving minimum to moderate assistance with feeding per nutrition intake documentation. Pending additional documentation of PO intake for today. Pt documented as confused and A/O x1. LBM 05/19. Will continue to follow closely and monitor need for nutrition intervention. Recommendations: 1) Continue [facility], [place] soft heart healthy diet with grind meat/thin liquids per ST recs 2) Consider diet liberalization to regular if PO intake does not improve 3) Encourage PO intake; assistance with meals 4) Monitor need for ONS 5) Bowel care PRN 6) Wt per rx Addendum: 05/19/19 at [address] Amended: Links added.
[2019-05-19 18:00] VITALS: BP 103/48
--- NOTE | 2019-05-19 18:30 | NUR ---
Patient in room ORTHO 4022. I have received report from Carrie MCKINNON and had the opportunity to ask questions and assume patient care.
[2019-05-19 22:00] VITALS: BP 110/58
[2019-05-20] MEDS: normal saline 1000ml 1,000 ML IV SCH ×2 (03:05→15:54)
[2019-05-20 06:00] VITALS: BP 99/49
[2019-05-20 06:10] LABS: BASOPHILS % (AUTO) 0.9 % (0-1); EOSINOPHILS # (AUTO) 0.1 X10'3 (0-0.9); EOSINOPHILS % (AUTO) 1.3 % (0-6); HEMATOCRIT 33.5 % (42.0-52.0); HEMOGLOBIN 11.6 g/dl (14.0-17.9); LYMPHOCYTES # (AUTO) 1.4 X10'3 (1.1-4.8); LYMPHOCYTES % (AUTO) 34.6 % (21-51); MEAN CORPUSCULAR HEMOGLOBIN 34.1 PG (27.0-31.0); MEAN CORPUSCULAR HGB CONC 34.6 g/dL (33.0-36.5); MEAN CORPUSCULAR VOLUME 98.6 FL (78-98); MEAN PLATELET VOLUME 8.9 FL (7.4-10.4); MONOCYTES # (AUTO) 0.6 X10'3 (0-0.9); MONOCYTES % (AUTO) 14.3 % (2-12); NEUTROPHILS % (AUTO) 48.9 % (42-75); PLATELET COUNT 173 X10'3 (140-440); RED CELL DISTRIBUTION WIDTH 16.3 % (11.5-14.5)
[2019-05-20 06:35] LABS: ALBUMIN 1.8 G/DL (3.4-5.0); ANION GAP 5 (8-16); BLOOD UREA NITROGEN 16 MG/DL (7-18); BUN/CREATININE RATIO 15.7 (5.4-32.0); CALCIUM 7.2 MG/DL (8.5-10.1); CHLORIDE 108 MMOL/L (99-107); CREATININE 1.02 MG/DL (0.60-1.10); GLUCOSE 96 MG/DL (70-104); POTASSIUM 3.6 MMOL/L (3.5-5.1); SODIUM 140 MMOL/L (135-145); TOTAL CARBON DIOXIDE 26.8 MMOL/L (24-32); eGFR 69 ML/MIN
--- NOTE | 2019-05-20 06:40 | NUR ---
Problems reprioritized. Patient report given, questions answered & plan of care reviewed with Dipti MCKINNON.
[2019-05-20] MEDS: phenytoin sod ER 100mg capsule PO SCH ×3 (09:04→20:04)
[2019-05-20] MEDS: apixaban 5mg tablet PO SCH ×2 (09:04→20:06)
[2019-05-20] MEDS: metoprolol tartrate 25mg tablet PO SCH ×2 (09:05→20:00)
[2019-05-20 10:00] VITALS: BP 119/65
[2019-05-20 18:00] VITALS: BP 103/46
--- NOTE | 2019-05-20 19:00 | NUR ---
Patient in room ORTHO 4022. I have received report from Dipti MCKINNON and had the opportunity to ask questions and assume patient care.
[2019-05-20 22:00] VITALS: BP 91/45
[2019-05-21] MEDS: normal saline 1000ml 1,000 ML IV SCH ×3 (01:52→21:52)
[2019-05-21 06:00] VITALS: BP 102/39
[2019-05-21 07:19] LABS: BASOPHILS % (AUTO) 0.7 % (0-1); EOSINOPHILS # (AUTO) 0.1 X10'3 (0-0.9); EOSINOPHILS % (AUTO) 0.8 % (0-6); HEMATOCRIT 34.3 % (42.0-52.0); HEMOGLOBIN 11.9 g/dl (14.0-17.9); MEAN CORPUSCULAR HEMOGLOBIN 33.9 PG (27.0-31.0); MEAN CORPUSCULAR HGB CONC 34.7 g/dL (33.0-36.5); MEAN CORPUSCULAR VOLUME 97.8 FL (78-98); MEAN PLATELET VOLUME 8.4 FL (7.4-10.4); MONOCYTES # (AUTO) 0.7 X10'3 (0-0.9); MONOCYTES % (AUTO) 9.7 % (2-12); NEUTROPHILS # (AUTO) 4.1 X10'3 (1.8-7.7); NEUTROPHILS % (AUTO) 59.8 % (42-75); PLATELET COUNT 188 X10'3 (140-440); RED BLOOD COUNT 3.51 X10'6 (4.70-6.10); RED CELL DISTRIBUTION WIDTH 16.4 % (11.5-14.5); WHITE BLOOD COUNT 6.8 X10'3 (4.5-11.0)
[2019-05-21 07:44] LABS: ALBUMIN 1.9 G/DL (3.4-5.0); ANION GAP 3 (8-16); BLOOD UREA NITROGEN 13 MG/DL (7-18); BUN/CREATININE RATIO 11.9 (5.4-32.0); CALCIUM 7.4 MG/DL (8.5-10.1); CHLORIDE 109 MMOL/L (99-107); CREATININE 1.09 MG/DL (0.60-1.10); GLUCOSE 85 MG/DL (70-104); POTASSIUM 4.3 MMOL/L (3.5-5.1); SODIUM 142 MMOL/L (135-145); TOTAL CARBON DIOXIDE 29.6 MMOL/L (24-32); eGFR 64 ML/MIN
[2019-05-21] MEDS: metoprolol tartrate 25mg tablet PO SCH ×2 (08:00→20:00)
[2019-05-21] MEDS: apixaban 5mg tablet PO SCH ×2 (09:01→22:26)
[2019-05-21] MEDS: phenytoin sod ER 100mg capsule PO SCH ×3 (09:02→22:27)
--- NOTE | 2019-05-21 11:31 | NUR ---
PAGER ID: [phone] MESSAGE: Dipti [phone] re [id number]-Lobo Aleman- family friend at bedside with information re his social history- states she filed an APS case about his living situation- I am going to page Case management to get involved. Also, can I dc the fluids? Thanks
--- NOTE | 2019-05-21 12:21 | NUR ---
Reassessment: Pt continues to have poor PO intake avg 25% however last two meals avg 75-100%. Recommend Ensure Enlive TIDWM in view of prior suboptimal PO intake. Pt AOx2 with hx of dementia likely contributing to fluctuating PO intake. LBM 05/19, pt may benefit from routine bowel care. Will continue to monitor. Recommendations: 1) Continue [facility] soft heart healthy diet with grind meat/thin liquids per ST recs 2) Consider diet liberalization to regular if PO intake does not improve 3) Encourage PO intake; assistance with meals 4) Ensure Enlive TIDWM pending verification 5) Bowel care PRN 6) Wt per rx Addendum: 05/21/19 at 1221 by Wing Annetta BENAVIDES Amended: Links added. Addendum: 05/21/19 at [address] RD agree with note
[2019-05-21] MEDS: lactose-reduced food (Ensure Enlive) - 237ml bottle PO SCH ×2 (13:00→18:00)
[2019-05-21 18:00] VITALS: BP 105/51
[2019-05-21 22:00] VITALS: BP 102/60
[2019-05-22] MEDS: normal saline 1000ml 1,000 ML IV SCH ×2 (07:52→17:52)
[2019-05-22] MEDS: metoprolol tartrate 25mg tablet PO SCH ×2 (08:00→20:00)
[2019-05-22] MEDS: lactose-reduced food (Ensure Enlive) - 237ml bottle PO SCH ×3 (08:00→18:56)
[2019-05-22] MEDS: apixaban 5mg tablet PO SCH ×2 (09:30→20:36)
[2019-05-22] MEDS: phenytoin sod ER 100mg capsule PO SCH ×3 (09:30→20:36)
[2019-05-22 10:00] VITALS: BP 112/54
--- NOTE | 2019-05-22 11:10 | NUR ---
PAGER ID: [phone] MESSAGE: Ash Johnson in [phone]- currently complaining of L lower chest pain, all vitals stable no distress, trying to obtain good EKG at this time could you call me? Addendum: 05/22/19 at 1110 by Tata Bui RN hospitalist called back immediately and ordered ekg and chest xray
--- NOTE | 2019-05-22 11:18 | NUR ---
showed MD the ekg and she signed off on it. Orders received to give motrin at this time and reevaluate after cxr
[2019-05-22] MEDS ORDERED: ibuprofen 200mg tablet PO ONE (12:05)
[2019-05-22 18:00] VITALS: BP 114/44
--- NOTE | 2019-05-22 19:00 | NUR ---
Patient in room ORTHO 4022. I have received report from Dipti MCKINNON and had the opportunity to ask questions and assume patient care.
[2019-05-22 22:00] VITALS: BP 106/38
[2019-05-23] MEDS: normal saline 1000ml 1,000 ML IV SCH ×2 (03:52→13:52)
[2019-05-23 06:00] VITALS: BP 110/57
[2019-05-23] MEDS: lactose-reduced food (Ensure Enlive) - 237ml bottle PO SCH ×3 (08:00→18:00)
[2019-05-23] MEDS: phenytoin sod ER 100mg capsule PO SCH ×3 (09:14→20:03)
[2019-05-23] MEDS: apixaban 5mg tablet PO SCH ×2 (09:15→20:03)
[2019-05-23] MEDS: metoprolol tartrate 25mg tablet PO SCH ×2 (09:15→20:00)
[2019-05-23 10:00] VITALS: BP 110/57
[2019-05-23 18:00] VITALS: BP 87/32
--- NOTE | 2019-05-23 18:30 | NUR ---
Patient in room ORTHO 4022. I have received report from PRATIBHA BARRY and had the opportunity to ask questions and assume patient care.
[2019-05-23] MEDS: magnesium hydroxide 30ml (MOM) UD suspension PO PRN (20:03)
[2019-05-23 22:00] VITALS: BP 89/41
[2019-05-24] MEDS: normal saline 1000ml 1,000 ML IV SCH ×3 (02:30→23:00)
[2019-05-24 06:00] VITALS: BP 100/63
--- NOTE | 2019-05-24 06:30 | NUR ---
Patient in room ORTHO 4022. I have received report from PRATIBHA Klein and had the opportunity to ask questions and assume patient care.
--- NOTE | 2019-05-24 06:31 | NUR ---
Problems reprioritized. Patient report given, questions answered & plan of care reviewed with PRATIBHA BARRY.
[2019-05-24] MEDS: metoprolol tartrate 25mg tablet PO SCH ×2 (08:00→20:00)
[2019-05-24] MEDS: lactose-reduced food (Ensure Enlive) - 237ml bottle PO SCH ×3 (08:29→18:00)
[2019-05-24] MEDS: phenytoin sod ER 100mg capsule PO SCH ×3 (08:30→20:27)
[2019-05-24] MEDS: apixaban 5mg tablet PO SCH ×2 (08:31→20:26)
[2019-05-24 10:00] VITALS: BP 109/49
--- NOTE | 2019-05-24 16:01 | NUR ---
Reassessment: Pt PO improved to 75% avg meals w/ 50-75% ONS meeting needs. PO does fluctuate w/ dementia and AOx2. LBM 05/19; received miralax yesterday and to get again today per RN. KENNEDY d/w RN regarding routine bowel care per MD approval. Will continue to monitor. Recommendations: 1) Continue the [facility] soft heart healthy diet with grind meat/thin liquids per ST recs 2) Consider diet liberalization to regular if PO intake does not improve 3) Encourage PO intake; assistance with meals 4) Ensure Enlive TIDWM pending verification 5) Bowel care PRN 6) Wt per rx Addendum: 05/24/19 at [address] Amended: Links added.
[2019-05-24 18:00] VITALS: BP 105/32
--- NOTE | 2019-05-24 18:39 | NUR ---
Problems reprioritized. Patient report given, questions answered & plan of care reviewed with PRATIBHA Klein.
[2019-05-24] MEDS: magnesium hydroxide 30ml (MOM) UD suspension PO PRN (20:29)
[2019-05-24 22:00] VITALS: BP 124/7
--- NOTE | 2019-05-25 06:29 | NUR ---
Problems reprioritized. Patient report given, questions answered & plan of care reviewed with PRATIBHA BARRY.
--- NOTE | 2019-05-25 06:34 | NUR ---
Problems reprioritized. Patient report given, questions answered & plan of care reviewed with PRATIBHA AZEVEDO.
[2019-05-25] MEDS: phenytoin sod ER 100mg capsule PO SCH ×2 (08:20→13:14)
[2019-05-25 08:21] VITALS: BP_SYST 124
[2019-05-25] MEDS: lactose-reduced food (Ensure Enlive) - 237ml bottle PO SCH ×2 (08:21→13:14)
[2019-05-25] MEDS: metoprolol tartrate 25mg tablet PO SCH (08:21)
[2019-05-25] MEDS: apixaban 5mg tablet PO SCH (08:21)
[2019-05-25] MEDS: normal saline 1000ml 1,000 ML IV SCH (08:24)
== END 2019-05-25 14:55 | disposition home health service (06) | DRG 683 ==
LOC: ER 19:17 → ED HOLD 21:52 → ORTHO 4S 05-17 00:18
PROVIDERS: ADMIT Family Medicine; ATTEND Family Medicine
DX: N17.9 Acute kidney failure, unspecified (principal); I69.354 Hemiplegia and hemiparesis following cerebral infarction affecting left non-dominant side; I48.20 Chronic atrial fibrillation, unspecified; F03.91 Unspecified dementia, unspecified severity, with behavioral disturbance; F05 Delirium due to known physiological condition; E03.9 Hypothyroidism, unspecified; E78.5 Hyperlipidemia, unspecified; E86.0 Dehydration; W06.XXXA Fall from bed, initial encounter; R07.9 Chest pain, unspecified; M25.512 Pain in left shoulder; G40.909 Epilepsy, unspecified, not intractable, without status epilepticus; I11.0 Hypertensive heart disease with heart failure; I50.9 Heart failure, unspecified; Y93.89 Activity, other specified; Y92.89 Other specified places as the place of occurrence of the external cause; Y99.8 Other external cause status; Z88.8 Allergy status to other drugs, medicaments and biological substances; Z79.899 Other long term (current) drug therapy
CPT/HCPCS: 36415; 71045; 73030; 76937; 80048; 80053; 80185; 81001; 83735; 83880; 84439; 84443; 84484; 85025; 87081; 92508; 92616; 93005; 97110; 97112; 97116; 97161; 97530; 99285; G0378; J7030

== ENCOUNTER 2021-05-03 20:17 | Inpatient (IN) | payer BC ==
[~2021-05-03] VITALS: Ht 182.9 cm; Wt 88.6 kg
[~2021-05-03 20:17] MED LIST changes: -APIX5TAB3 PO; -DIGO125T97 PO; +LOP25T PO; -METO25TA6 PO; +MULT-620 PO; -MULT1TAB74 PO; +PANT-47 PO
[2021-05-03] MEDS ORDERED: temazepam 15mg capsule PO PRN (21:00)
[2021-05-03 21:29] LABS: GLUCOSE, URINE NEGATIVE (Neg); KETONES,URINE TRACE mg/dl (Neg); LEUKOCYTE ESTERASE ,URINE NEGATIVE (Neg); NITRITES, URINE NEGATIVE (Neg); OCCULT BLOOD,URINE LARGE (Neg); PROTEIN,URINE 30 mg/dl (Neg)
[2021-05-03 21:32] LABS: COLOR,URINE BROWN (Yellow); UA COLLECTION TYPE STRAIGHT CATH
[2021-05-03 21:33] LABS: CLARITY,URINE CLOUDY (Clear)
[2021-05-03 21:39] LABS: BASOPHILS # (AUTO) 0.1 X10'3 (0-0.2); BASOPHILS % (AUTO) 0.4 % (0-1); EOSINOPHILS % (AUTO) 0.1 % (0-6); HEMATOCRIT 42.2 % (42.0-52.0); LYMPHOCYTES # (AUTO) 0.3 X10'3 (1.1-4.8); LYMPHOCYTES % (AUTO) 1.5 % (21-51); MEAN CORPUSCULAR HEMOGLOBIN 32.8 PG (27.0-31.0); MEAN CORPUSCULAR HGB CONC 33.1 g/dL (33.0-36.5); MONOCYTES # (AUTO) 0.7 X10'3 (0-0.9); MONOCYTES % (AUTO) 3.5 % (2-12); NEUTROPHILS # (AUTO) 18.8 X10'3 (1.8-7.7); NEUTROPHILS % (AUTO) 94.5 % (42-75); PLATELET COUNT 225 X10'3 (140-440); RED BLOOD COUNT 4.27 X10'6 (4.70-6.10); RED CELL DISTRIBUTION WIDTH 14.4 % (11.5-14.5); WHITE BLOOD COUNT 19.9 X10'3 (4.5-11.0)
[2021-05-03 21:39] LABS: CELLULAR CAST 0-4 /LPF (NEGATIVE); COARSE GRANULAR CAST 0-3 /LPF (NEGATIVE); MUCUS STRANDS FEW /LPF (Neg); SQUAMOUS EPITHELIAL CELL,UR FEW /LPF (FEW)
[2021-05-03 21:40] LABS: BACTERIA,URINE 1+ /HPF (Neg); RBC,URINE 20-50 /HPF (0-2)
[2021-05-03 21:42] LABS: AMORPHOUS URATES 1+
[2021-05-03 22:02] LABS: ALANINE AMINOTRANSFERASE 311 U/L (12-78); ALBUMIN 2.7 G/DL (3.4-5.0); ALBUMIN/GLOBULIN RATIO 0.6 (1.1-1.5); ALKALINE PHOSPHATASE 229 IU/L (46-116); ANION GAP 8 (8-16); ASPARTATE AMINO TRANSFERASE 307 U/L (10-37); BILIRUBIN,TOTAL 2.3 MG/DL (0.1-1.0); BLOOD UREA NITROGEN 46 MG/DL (7-18); BUN/CREATININE RATIO 20.3 (5.4-32.0); CALCIUM 8.9 MG/DL (8.5-10.1); CHLORIDE 114 MMOL/L (99-107); CREATININE 2.27 MG/DL (0.60-1.10); GLUCOSE 105 MG/DL (70-104); POTASSIUM 5.4 MMOL/L (3.5-5.1); SODIUM 152 MMOL/L (135-145); TOTAL CARBON DIOXIDE 29.6 MMOL/L (24-32); TOTAL PROTEIN 7.2 G/DL (6.4-8.2); eGFR 27 ML/MIN
[2021-05-03 22:04] LABS: CREATINE KINASE 297 U/L (39-308)
[2021-05-03] MEDS ORDERED: magnesium hydroxide 30ml (MOM) UD suspension PO PRN (23:30)
[2021-05-03] MEDS ORDERED: magnesium 2GM in 50ml NS 50 ML IV PRN (23:30)
[2021-05-03] MEDS ORDERED: potassium Cl 20 mEq SR tablet PO PRN ×2 (23:30)
[2021-05-03] MEDS ORDERED: acetaminophen 325mg tablet PO PRN ×2 (23:30)
[2021-05-03] MEDS ORDERED: ondansetron/PF 4mg/2ml inj IV PRN (23:30)
[2021-05-03] MEDS ORDERED: potassium CL 10mEq/100ml bag 100 ML IV PRN (23:30)
[2021-05-03] MEDS ORDERED: mag hydrox/Alum hydrox/simeth 30ml oral suspension PO PRN (23:30)
[2021-05-03] MEDS ORDERED: magnesium 4gm in 100ml NS 100 ML IV PRN (23:30)
[2021-05-03] MEDS ORDERED: magnesium Cl slow-release 64mg tablet PO PRN (23:30)
[2021-05-03] MEDS ORDERED: sodium chloride 0.45% 1,000 ML IV SCH (23:35)
[2021-05-03] MEDS ORDERED: vancomycin/NS 1 GM ADD-VANTAGE 250 ML X 1 DOSE IV ONE (23:45)
[2021-05-04] MEDS ORDERED: atenolol 25mg tablet PO ONE (00:05)
[2021-05-04] MEDS ORDERED: normal saline 500ml IV soln 500 ML IV SCH (00:15)
--- NOTE | 2021-05-04 00:15 | NUR ---
hospitalist was in room to see pt, pt's heart rate up to 172 as he was being examined. order taken from hospitalist for fluid bolus of 500cc, sbp 95. bolus was started
--- NOTE | 2021-05-04 00:24 | NUR ---
ekg was repeated for rapid heart rate
[2021-05-04] MEDS ORDERED: normal saline 1000ml 1,000 ML IV ONE (00:25)
[2021-05-04] MEDS ORDERED: diltiazem 5mg/ml 5ml inj. IV ONE (00:30)
[2021-05-04] MEDS ORDERED: digoxin 250mcg/ml 2ml ampule IV ONE (01:30)
[2021-05-04 02:04] LABS: BASOPHILS % (AUTO) 0.1 % (0-1); EOSINOPHILS % (AUTO) 0 % (0-6); HEMATOCRIT 37.2 % (42.0-52.0); HEMOGLOBIN 12.2 g/dl (14.0-17.9); LYMPHOCYTES # (AUTO) 0.3 X10'3 (1.1-4.8); LYMPHOCYTES % (AUTO) 2.1 % (21-51); MEAN CORPUSCULAR HEMOGLOBIN 32.6 PG (27.0-31.0); MEAN CORPUSCULAR HGB CONC 32.9 g/dL (33.0-36.5); MEAN CORPUSCULAR VOLUME 99.2 FL (78-98); MEAN PLATELET VOLUME 8.9 FL (7.4-10.4); MONOCYTES # (AUTO) 0.7 X10'3 (0-0.9); MONOCYTES % (AUTO) 4.3 % (2-12); NEUTROPHILS # (AUTO) 15.2 X10'3 (1.8-7.7); NEUTROPHILS % (AUTO) 93.5 % (42-75); PLATELET COUNT 204 X10'3 (140-440); RED BLOOD COUNT 3.74 X10'6 (4.70-6.10); RED CELL DISTRIBUTION WIDTH 14.6 % (11.5-14.5); WHITE BLOOD COUNT 16.2 X10'3 (4.5-11.0)
[2021-05-04 02:16] LABS: ALANINE AMINOTRANSFERASE 231 U/L (12-78); ALBUMIN 2.2 G/DL (3.4-5.0); ALBUMIN/GLOBULIN RATIO 0.6 (1.1-1.5); ALKALINE PHOSPHATASE 184 IU/L (46-116); ANION GAP 11 (8-16); ASPARTATE AMINO TRANSFERASE 205 U/L (10-37); BILIRUBIN,TOTAL 1.7 MG/DL (0.1-1.0); BLOOD UREA NITROGEN 43 MG/DL (7-18); BUN/CREATININE RATIO 20.3 (5.4-32.0); CHLORIDE 115 MMOL/L (99-107); CREATININE 2.12 MG/DL (0.60-1.10); GLUCOSE 69 MG/DL (70-104); POTASSIUM 4.8 MMOL/L (3.5-5.1); SODIUM 151 MMOL/L (135-145); TOTAL CARBON DIOXIDE 25.2 MMOL/L (24-32); TOTAL PROTEIN 5.8 G/DL (6.4-8.2); eGFR 30 ML/MIN
[2021-05-04] MEDS ORDERED: amiodarone 50MG/ML inj IV ONE (02:50)
[2021-05-04] MEDS ORDERED: amiodarone 150mg/dext, iso-os 100 ML IV ONE (02:50)
[2021-05-04] MEDS ORDERED: DOBUTamine-DoBUTrex 500mg/D5W 250 ML IV SCH (03:25)
[2021-05-04] MEDS: normal saline 1000ml 1,000 ML IV SCH ×3 (04:36→17:15)
[2021-05-04] MEDS ORDERED: ringers solution, lacted 1,000 ML IV ONE (05:00)
[2021-05-04] MEDS ORDERED: ringers solution, lactated 500ml IV solution IV ONE (05:10)
[2021-05-04] MEDS ORDERED: NORepinephrine 8mg/ 250ml NS 250 ML IV SCH (05:20)
[2021-05-04] MEDS: amiodarone/D5 360MG/200ML BAG 200 ML IV SCH ×4 (05:24→23:26)
[2021-05-04] MEDS: K and/or MAG REPLACEMENT MC SCH ×2 (08:00→23:00)
[2021-05-04] MEDS ORDERED: heparin, porcine 5000 units/ml vial SQ SCH (08:00)
--- NOTE | 2021-05-04 08:15 | NUR ---
started vancomycin now. vanco was scanned earlier this morning but wasnt administed due to minimal iv access. pt now has central line. museum tour guide present at bedside and states no levophed at this time as pt is 108/49 and has converted back to sinus rhythm at 77bpm.
--- NOTE | 2021-05-04 08:24 | NUR ---
ended dobuatmine drip on the iv spreadsheet. however this medication was stopped by material handler 2nd shift and wasnt discontinued on the spreadsheet.
[2021-05-04] MEDS: CefTRIAXone 2gm/D5W 50ml BAG 50 ML IV SCH (09:56)
[2021-05-04] MEDS ORDERED: PHEN100C12 PO (11:02)
[2021-05-04] MEDS ORDERED: PANT40TA54 PO (11:02)
[2021-05-04] MEDS ORDERED: MULT-1085 PO (11:02)
[2021-05-04] MEDS ORDERED: OXYB5TAB16 PO (11:02)
[2021-05-04] MEDS ORDERED: ROSU10TA28 PO (11:02)
[2021-05-04] MEDS ORDERED: LOP12.5T PO (11:02)
[2021-05-04] MEDS ORDERED: DOCU100C40 PO (11:02)
--- NOTE | 2021-05-04 11:29 | NUR ---
called telephone order dispatcher gregor regarding pt blood sugar slowing dropping, last bs 77. received order to change maintenance fluid from normal saline to d5 1/2 ns to run at 125ml/hr. order placed as received
[2021-05-04] MEDS: dextrose 5%-normal saline 1,000 ML IV SCH ×2 (11:36→23:39)
[2021-05-04] MEDS ORDERED: ondansetron 4mg rapidly disintigrating tab PO PRN (14:35)
[2021-05-04] MEDS: phenytoin sod ER 100mg capsule PO SCH ×2 (16:00→18:29)
[2021-05-04] MEDS: metoprolol tartrate 25mg tablet PO SCH (20:00)
[2021-05-04] MEDS: docusate sod 100mg capsule PO SCH (21:38)
[2021-05-04] MEDS: lactobacillus rhamnosus 10,000 MMU CELLS/CAPSULE PO SCH (21:39)
[2021-05-04] MEDS: oxybutynin 5mg tablet PO SCH (21:39)
[2021-05-04] MEDS: apixaban 2.5mg tablet PO SCH (21:40)
[2021-05-04] MEDS: pantoprazole 40mg Tablet.DR PO SCH (21:40)
[2021-05-04 22:00] VITALS: BP 101/53
--- NOTE | 2021-05-04 22:10 | NUR ---
REPORT CALLED TO RN.
[2021-05-05] MEDS: phenytoin sod ER 100mg capsule PO SCH ×3 (00:53→17:11)
[2021-05-05] MEDS: vancomycin inj. 750 MG in normal saline 250ml IV soln 250 ML IV SCH (01:52)
[2021-05-05] MEDS: dextrose 5%-normal saline 1,000 ML IV SCH (03:30)
[2021-05-05] MEDS: amiodarone/D5 360MG/200ML BAG 200 ML IV SCH (05:17)
[2021-05-05 06:00] VITALS: BP 107/52
--- NOTE | 2021-05-05 06:30 | NUR ---
Patient in room PCU 3015. I have received report from Mary Ellen MCKINNON and had the opportunity to ask questions and assume patient care.
--- NOTE | 2021-05-05 07:40 | NUR ---
PAGER ID: [phone] MESSAGE: Re: Payton Tejeda. Room: [facility]4A. Pt is in 3rd degree HB. Pt complains of mod. SOB. HR sustaining in high 30's. -Burt [facility] #[id number] -Dr. Coats paged concerning Pt's 3rd degree HB Addendum: 05/05/21 at 1014 by Burt Engel RN wrong patient
[2021-05-05] MEDS: K and/or MAG REPLACEMENT MC SCH ×2 (08:00→20:00)
[2021-05-05] MEDS: metoprolol tartrate 25mg tablet PO SCH ×2 (08:00→20:43)
[2021-05-05 09:21] LABS: BASOPHILS % (AUTO) 0.1 % (0-1); EOSINOPHILS % (AUTO) 0.4 % (0-6); HEMATOCRIT 33.6 % (42.0-52.0); HEMOGLOBIN 11.4 g/dl (14.0-17.9); LYMPHOCYTES # (AUTO) 0.5 X10'3 (1.1-4.8); LYMPHOCYTES % (AUTO) 6.2 % (21-51); MEAN CORPUSCULAR HEMOGLOBIN 33.2 PG (27.0-31.0); MEAN CORPUSCULAR HGB CONC 33.9 g/dL (33.0-36.5); MEAN CORPUSCULAR VOLUME 97.9 FL (78-98); MEAN PLATELET VOLUME 9.7 FL (7.4-10.4); MONOCYTES # (AUTO) 0.4 X10'3 (0-0.9); MONOCYTES % (AUTO) 4.7 % (2-12); NEUTROPHILS # (AUTO) 6.9 X10'3 (1.8-7.7); NEUTROPHILS % (AUTO) 88.6 % (42-75); PLATELET COUNT 166 X10'3 (140-440); RED BLOOD COUNT 3.43 X10'6 (4.70-6.10); RED CELL DISTRIBUTION WIDTH 14.4 % (11.5-14.5); WHITE BLOOD COUNT 7.8 X10'3 (4.5-11.0)
[2021-05-05] MEDS: CefTRIAXone 2gm/D5W 50ml BAG 50 ML IV SCH (09:26)
[2021-05-05] MEDS: apixaban 2.5mg tablet PO SCH ×2 (09:34→20:40)
[2021-05-05] MEDS: lactobacillus rhamnosus 10,000 MMU CELLS/CAPSULE PO SCH ×2 (09:34→20:40)
[2021-05-05] MEDS: multivitamins, therapeutics tablet PO SCH (09:34)
[2021-05-05] MEDS: ROSUVASTATIN CALCIUM 5 MG TABLET PO SCH (09:35)
[2021-05-05] MEDS: pantoprazole 40mg Tablet.DR PO SCH ×2 (09:35→20:40)
[2021-05-05] MEDS: docusate sod 100mg capsule PO SCH ×2 (09:35→20:40)
[2021-05-05 09:50] LABS: ALANINE AMINOTRANSFERASE 124 U/L (12-78); ALBUMIN/GLOBULIN RATIO 0.6 (1.1-1.5); ALKALINE PHOSPHATASE 165 IU/L (46-116); ANION GAP 12 (8-16); ASPARTATE AMINO TRANSFERASE 64 U/L (10-37); BILIRUBIN,TOTAL 0.6 MG/DL (0.1-1.0); BLOOD UREA NITROGEN 33 MG/DL (7-18); BUN/CREATININE RATIO 20.4 (5.4-32.0); CALCIUM 7.6 MG/DL (8.5-10.1); CHLORIDE 114 MMOL/L (99-107); CREATININE 1.62 MG/DL (0.60-1.10); GLUCOSE 109 MG/DL (70-104); POTASSIUM 3.8 MMOL/L (3.5-5.1); SODIUM 147 MMOL/L (135-145); TOTAL CARBON DIOXIDE 21.5 MMOL/L (24-32); TOTAL PROTEIN 5.6 G/DL (6.4-8.2); eGFR 40 ML/MIN
[2021-05-05] MEDS: dextrose 5%-water 1,000 ML IV SCH ×2 (10:24→20:41)
[2021-05-05 11:00] VITALS: BP 113/56
[2021-05-05 15:00] VITALS: BP 122/56
[2021-05-05 18:00] VITALS: BP 124/62
--- NOTE | 2021-05-05 18:10 | NUR ---
Problems reprioritized. Patient report given, questions answered & plan of care reviewed with Concepción MCKINNON.
--- NOTE | 2021-05-05 18:30 | NUR ---
Patient in room PCU 3015. I have received report from PRATIBHA Dallas and had the opportunity to ask questions and assume patient care.
--- NOTE | 2021-05-05 18:31 | NUR ---
Patient in room [facility] 3015. I have received report from Dana MCKINNON and had the opportunity to ask questions and assume patient care. Addendum: 05/05/21 at 1836 by Concepción Stauffer RN The above note to read received report from Burt MCKINNON,
[2021-05-05] MEDS: oxybutynin 5mg tablet PO SCH (20:39)
[2021-05-05] MEDS: nystatin 15 GM powder TP SCH (21:00)
[2021-05-05 22:00] VITALS: BP 146/47
[2021-05-06] MEDS: phenytoin sod ER 100mg capsule PO SCH ×2 (01:12→09:18)
[2021-05-06] MEDS: vancomycin inj. 750 MG in normal saline 250ml IV soln 250 ML IV SCH (01:15)
[2021-05-06 02:00] VITALS: BP 118/55
[2021-05-06 06:00] VITALS: BP 108/81
--- NOTE | 2021-05-06 06:47 | NUR ---
Problems reprioritized. Patient report given, questions answered & plan of care reviewed with PRATIBHA Cunningham.
--- NOTE | 2021-05-06 06:56 | NUR ---
Patient in room PCU 3015. I have received report from Concepción MCKINNON and had the opportunity to ask questions and assume patient care.
[2021-05-06 06:59] LABS: BASOPHILS % (AUTO) 0.4 % (0-1); EOSINOPHILS % (AUTO) 0.6 % (0-6); HEMATOCRIT 31.7 % (42.0-52.0); LYMPHOCYTES # (AUTO) 0.6 X10'3 (1.1-4.8); LYMPHOCYTES % (AUTO) 10.7 % (21-51); MEAN CORPUSCULAR HEMOGLOBIN 33.5 PG (27.0-31.0); MEAN CORPUSCULAR HGB CONC 34.6 g/dL (33.0-36.5); MEAN CORPUSCULAR VOLUME 96.9 FL (78-98); MEAN PLATELET VOLUME 10.1 FL (7.4-10.4); MONOCYTES # (AUTO) 0.4 X10'3 (0-0.9); NEUTROPHILS # (AUTO) 4.2 X10'3 (1.8-7.7); NEUTROPHILS % (AUTO) 80.3 % (42-75); PLATELET COUNT 134 X10'3 (140-440); RED BLOOD COUNT 3.27 X10'6 (4.70-6.10); WHITE BLOOD COUNT 5.2 X10'3 (4.5-11.0)
--- NOTE | 2021-05-06 07:10 | NUR ---
Student documentation: I have reviewed and agree with all interventions, assessments performed and documented by Emilia Lloyd. Student Medication Administration: For this medication-pass time frame, all medication were reviewed, dispensed, administered and documented per hospital policy by Emilia Lloyd. Problems reprioritized. Patient report given, questions answered & plan of care reviewed with Lili MCKINNON.
[2021-05-06 07:27] LABS: ALANINE AMINOTRANSFERASE 87 U/L (12-78); ALBUMIN 1.8 G/DL (3.4-5.0); ALBUMIN/GLOBULIN RATIO 0.5 (1.1-1.5); ALKALINE PHOSPHATASE 152 IU/L (46-116); ANION GAP 8 (8-16); ASPARTATE AMINO TRANSFERASE 38 U/L (10-37); BILIRUBIN,TOTAL 0.4 MG/DL (0.1-1.0); BLOOD UREA NITROGEN 25 MG/DL (7-18); CHLORIDE 105 MMOL/L (99-107); CREATININE 1.56 MG/DL (0.60-1.10); GLUCOSE 99 MG/DL (70-104); POTASSIUM 3.5 MMOL/L (3.5-5.1); SODIUM 137 MMOL/L (135-145); TOTAL CARBON DIOXIDE 23.6 MMOL/L (24-32); TOTAL PROTEIN 5.1 G/DL (6.4-8.2); eGFR 42 ML/MIN
[2021-05-06] MEDS: K and/or MAG REPLACEMENT MC SCH (08:00)
[2021-05-06] MEDS: metoprolol tartrate 25mg tablet PO SCH ×2 (08:00→09:19)
[2021-05-06] MEDS: CefTRIAXone 2gm/D5W 50ml BAG 50 ML IV SCH (09:15)
[2021-05-06] MEDS: dextrose 5%-water 1,000 ML IV SCH (09:15)
[2021-05-06] MEDS: docusate sod 100mg capsule PO SCH (09:18)
[2021-05-06] MEDS: lactobacillus rhamnosus 10,000 MMU CELLS/CAPSULE PO SCH (09:19)
[2021-05-06] MEDS: pantoprazole 40mg Tablet.DR PO SCH (09:19)
[2021-05-06] MEDS: apixaban 2.5mg tablet PO SCH (09:19)
[2021-05-06] MEDS: nystatin 15 GM powder TP SCH ×2 (09:22→13:59)
[2021-05-06] MEDS: ROSUVASTATIN CALCIUM 5 MG TABLET PO SCH (09:22)
[2021-05-06] MEDS: multivitamins, therapeutics tablet PO SCH (09:23)
[2021-05-06 11:00] VITALS: BP 90/45
[2021-05-06] MEDS ORDERED: APIX2.5T PO (11:47)
[2021-05-06] MEDS ORDERED: AMOX-580 PO ×3 (11:47→16:41)
--- NOTE | 2021-05-06 12:19 | NUR ---
Paged Dr. Pryor PAGER ID: [phone] MESSAGE: TANYA Cunningham RN ext [phone]. RE: Ash Diamond. Patient has discharge home order. PT notes says pt is max assist and only dangled. I think pt needs billy
--- NOTE | 2021-05-06 12:30 | NUR ---
Paged Case Management PCU Octavio RN ext [phone]. RE: Ash Diamond. Dr. Pryor put order for discharge home with home health but PT note says he is max assist, dangled only. I think he needs rehab. Dr. Pryor said to talk to you about this
--- NOTE | 2021-05-06 12:57 | NUR ---
Per VIK Ramsay, patient has son available to pick him up and that the son told her that patient is wheelchair bound. Dr. Pryor said the same to me and confirmed to me he still wants to be discharge today
--- NOTE | 2021-05-06 13:12 | NUR ---
D/c'd hankins catheter as ordered, tolerated well
--- NOTE | 2021-05-06 13:24 | NUR ---
Left IJ central line catheter removed, tip intact. Pressure dressing applied and secured with tape
--- NOTE | 2021-05-06 13:33 | NUR ---
Attempted to call daughter in law Camila (I do not have contact number for the patient's son in the chart). Left a voicemail to call me back
--- NOTE | 2021-05-06 13:36 | NUR ---
I tried to call the home phone number on file [phone], the generated voice message said " the line is either been disconnected or no longer in service!"
--- NOTE | 2021-05-06 13:50 | NUR ---
Got a call back from Camila (daughter in law), she confirmed to me that she and her (the patient's son) were aware of the order for discharge today. She confirmed to me that patient will be pick pack worker by his son who will arrive her via cab transportation.
--- NOTE | 2021-05-06 15:07 | NUR ---
Discharged patient home accompanied by his son who came by to the hospital to pickle pumper patient with the race car driver with him. I asked the son where's the wheelchair? He said its at home. Discharge instructions given to the son who verbalized understanding of all instructions made. Peripheral IV catheter was removed prior to discharge, tip intact. Patient was given pants to wear and sent with a gown. I told the son that we did not found any shirt with his belonging bag. Patient was having difficulty standing straight and transferring from wheelchair to the cab seat, took 4 people to get him on the seat from wheelchair. Patient son said he will have his Camila help him with transfer to the wheelchair at home. Gait belt that we used for transfer was also given to the son. driver examiner also said he will help with transfer from the cab to the wheelchair when they get back home. I communicated this to the charge nurse Jona too.
[2021-05-07] MEDS ORDERED: VANCOMYCIN LEVEL IV ONE (00:30)
== END 2021-05-06 14:52 | disposition home or self-care (01) | DRG 871 ==
LOC: ER 20:18 → ED HOLD 23:34 → EDBEDREQ 05-04 00:31 → EDBEDREQSVC 05-04 00:31 → EDBEDREQ 05-04 20:33 → PCU 3S 05-04 22:34
PROVIDERS: ADMIT Internal Medicine; ATTEND Family Medicine
PROC: 02HV33Z Insertion of Infusion Device into Superior Vena Cava, Percutaneous Approach (ICD-10-PCS; principal; 2021-05-04)
PROC: B548ZZA Ultrasonography of Superior Vena Cava, Guidance (ICD-10-PCS; 2021-05-04)
DX: A41.9 Sepsis, unspecified organism (principal); K72.00 Acute and subacute hepatic failure without coma; N17.0 Acute kidney failure with tubular necrosis; R65.21 Severe sepsis with septic shock; G93.41 Metabolic encephalopathy; E46 Unspecified protein-calorie malnutrition; E87.0 Hyperosmolality and hypernatremia; N39.0 Urinary tract infection, site not specified; I48.20 Chronic atrial fibrillation, unspecified; E86.0 Dehydration; F03.90 Unspecified dementia, unspecified severity, without behavioral disturbance, psychotic disturbance, mood disturbance, and anxiety; G40.909 Epilepsy, unspecified, not intractable, without status epilepticus; I12.9 Hypertensive chronic kidney disease with stage 1 through stage 4 chronic kidney disease, or unspecified chronic kidney disease; K57.30 Diverticulosis of large intestine without perforation or abscess without bleeding; L89.91 Pressure ulcer of unspecified site, stage 1; N18.30 Chronic kidney disease, stage 3 unspecified; R62.7 Adult failure to thrive; I69.320 Aphasia following cerebral infarction; Z99.3 Dependence on wheelchair; Z68.26 Body mass index [BMI] 26.0-26.9, adult; Z88.8 Allergy status to other drugs, medicaments and biological substances; Z79.899 Other long term (current) drug therapy
CPT/HCPCS: 36415; 70450; 71045; 74176; 76700; 80053; 80185; 81001; 82140; 82550; 82948; 83605; 84443; 85025; 85610; 87040; 87081; 87088; 93005; 97162; 97530; 99285; G0378; J0282; J0696; J1160; J1250; J1644; J3370; J3490; J7030; J7042; J7050; J7070; J7120